=== PATIENT | male | born 1965 | race Caucasian/White ===

== ENCOUNTER 2019-03-15 09:24 | Inpatient (IN) ==
[2019-03-15] MEDS ORDERED: ACETAMINOPHEN 325 MG TABLET PO ONE (09:38)
[2019-03-15] MEDS ORDERED: 0.9 % SODIUM CHLORIDE 1,000 ML IV ONE (09:38)
--- NOTE | 2019-03-15 10:15 | XRay Report ---
CLINICAL INFORMATION: fever COMPARISON: 01/23/2019 FINDINGS: Moderate cardiomegaly is unchanged. Implantable cardioverter defibrillator in stable satisfactory position. Right central line also remains in stable satisfactory position. Mediastinum unremarkable. Pulmonary vessels have returned to normal in caliber since previous x-ray. There may be a small vague infiltrate developing in the right base IMPRESSION: Possible developing right basilar infiltrate Moderate stable cardiomegaly - no evidence of CHF Interpreted and Authenticated by: Rodrick Valverde 03/15/19
[2019-03-15 10:23] LABS: Basophils # (Auto) 0 K/mcL (0.0-0.3); Basophils % (Auto) 0 % (0.0-2.0); Eosinophils # (Auto) 0.1 K/mcL (0.0-0.7); Eosinophils % (Auto) 1.7 % (0.0-7.0); Granulocytes % (Auto) 92.8 % (38.0-78.0); Hematocrit 41.5 % (41.0-55.0); Lymphocytes # (Auto) 0.2 K/mcL (1.5-4.8); Lymphocytes % (Auto) 3.2 % (15.5-49.0); Mean Corpuscular HGB Conc 31.3 g/dL (31.0-36.0); Mean Platelet Volume 8.3 fL (7.4-10.4); Monocytes # (Auto) 0.2 K/mcL (0.1-0.9); Monocytes % (Auto) 2.3 % (1.0-12.0); Platelet Count 177 K/mcL (140-440); RBC 3.95 M/mcL (4.50-5.90); Red Cell Distribution Width 19.5 % (11.5-14.5); WBC 7.1 K/mcL (4.5-11.0)
[2019-03-15 10:55] LABS: ALT/SGPT 15 U/l (0-40); AST/SGOT 62 U/l (0-37); Albumin 4.2 gm/dL (3.2-5.2); Albumin/Globulin Ratio 1.2 (1.0-2.3); Alkaline Phosphatase 285 U/L (39-117); Bilirubin,Total 0.9 mg/dL (0.0-1.0); Blood Urea Nitrogen 24 mg/dl (6-20); Calcium 8.9 mg/dl (8.6-10.4); Carbon Dioxide 25 mmol/L (22-30); Chloride 94 mmol/L (96-108); Globulin 3.5 gm/dL (2.2-3.7); Glomerular Filtration Rate 11; Glucose 71 mg/dL (70-105)
--- NOTE | 2019-03-15 10:56 | Emergency Department Note ---
Weakness HPI - General Chief complaint: Weakness Stated complaint: Fever, weakness, low sats Time Seen by Provider: 03/15/19 10:42 Source: EMS Mode of arrival: EMS - History of Present Illness HPI Narrative: This 53-year-old male reports that he lives at home alone in an apartment. He gets dialysis and has chronic renal failure etc. He had a recent sepsis work-up and treatment and was flown to [place]. Today he comes because of feeling very cold and weak and chills. He had onset of the chills last week he says. He has had a little bit of a dry cough. EMS found him 76% on room air. He does not get home oxygen. He denies sweatiness. REVIEW OF SYSTEMS: Denies sweats Denies chest pain Denies cough or shortness of breath. Does not have oxygen at home Denies nausea, vomiting, diarrhea, constipation. Is an uric. Has chronic back pain he attributes to scoliosis No dizziness Some chronic anxiety and chronic depression. - Related Data Home Medications Medication Instructions Recorded Confirmed Calcium Acetate [Phoslo] 2,001 mg PO TIDCC 01/23/19 03/15/19 Folic Acid/Vit Bcomp,C/Cu/Znox 1 each PO DAILY 01/23/19 03/15/19 [Folbee Plus Cz Tablet] Simvastatin [Zocor] 20 mg PO HS 01/23/19 03/15/19 Amiodarone HCl [Cordarone] 200 mg PO QDAY 03/15/19 03/15/19 Aspirin [Padmini Chewable Aspirin] 81 mg PO QDAY 03/15/19 03/15/19 Calcium Acetate [Phoslo] 1,334 mg PO BIDP PRN 03/15/19 03/15/19 Carvedilol [Coreg] 3.125 mg PO BID 03/15/19 03/15/19 Cholecalciferol (Vitamin D3) 5,000 unit PO Q48H 03/15/19 03/15/19 [Vitamin D3] Hydrocodone/APAP 7.5/325Mg [[place] 1 - 2 tab PO Q8HP PRN 03/15/19 03/15/19 7.5-325Mg] Lisinopril [Zestril] 1 tab PO DAILY 03/15/19 03/15/19 Midodrine [Midodrine HCl] 5 mg PO QIDP PRN 03/15/19 03/15/19 Allergies Allergy/AdvReac Type Severity Reaction Status Date / Time morphine Allergy Mild Hives Verified 03/15/19 09:24 midazolam AdvReac Mild Hallucinati Verified 03/15/19 09:24 ng bisoprolol AdvReac Unknown Verified 03/15/19 09:24 Past Medical History - Past Medical History [facility] Narrative: Medical History (Last Updated 03/15/19 @ 10:59 by Deshaun Kelsey DO) Chronic renal failure, stage 5 (Chronic) Hypertension, essential (Chronic) Myocardial infarction (Chronic) Cardiac defibrillator in place (Chronic) Congestive heart failure (CHF) (Chronic) Coronary artery disease (Chronic) Anemia (Chronic) Hard of hearing (Chronic) Acute decompensated heart failure (Resolved) Fluid overload (Resolved) Medical history: Reports: CAD (coronary artery disease), CHF, hypertension, myocardial infarction, renal disease, other (Dialysis patient. Anemia. Defibrillator. Cardiac arrest. Diverticulitis). Denies: chronic anticoagulation, DVT, DM, pneumonia, pulmonary embolus Surgical history ED: Reports: non-contributory, other (AV fistula) - Social History smoking status: Former smoker Alcohol use: Reports: None Drug use: Reports: none. Denies: marijuana Physical Exam Limitations: physical limitation General appearance: in no apparent distress, malaise, obtunded, sleepy Head: atraumatic, normocephalic Eye: Present: EOMI ENT: Present: mucous membranes dry (Very dry lips and tongue.) Neck: Present: trachea midline. Absent: lymphadenopathy, thyromegaly Chest: Present: symmetric chest wall rise Respiratory: Present: normal lung sounds bilaterally. Absent: respiratory distress, wheezes, stridor, accessory muscle use, prolonged expiratory phase Cardiovascular: Present: regular rate, normal rhythm. Absent: systolic murmur, diastolic murmur Abdominal: Present: soft. Absent: distention, tenderness, guarding, rebound, rigidity, organomegaly, mass Extremities: Absent: pedal edema, pretibial edema, calf tenderness Neurological: Present: other (Sleepy but arousable and mostly appropriate interactions but incomplete and poor eye contact) Psychiatric: Present: flat affect, serious, poor eye contact. Absent: depr essed, agitated, anxious Skin: Present: warm, dry. Absent: rash Course Vital Signs Temperature 103.1 F H 03/15/19 09:24 Pulse Rate 95 H 03/15/19 09:24 Respiratory Rate 22 03/15/19 09:24 Blood Pressure 98/58 03/15/19 09:24 Pulse Oximetry (%) 92 03/15/19 09:24 Temperature 96.8 F L 03/15/19 21:01 Pulse Rate 81 03/15/19 20:15 Respiratory Rate 17 03/15/19 21:22 Blood Pressure 159/107 03/15/19 21:21 Pulse Oximetry (%) 97 03/15/19 21:22 Weakness - MDM Narrative Medical decision making narrative: 10:46 AM -patient with significant fever, cough, hypoxia, chills. Has a history of a heart murmur. Has had recent catheter change and AV fistula placement. We will do sepsis work-up and evaluation. EKG demonstrates LVH with repolarization abnormalities. 10:50 AM - x-ray showing a right basilar early infiltrate. Patient is continuing to require 4 and then 5 L of oxygen. 10:56 AM - labs with hemoglobin 13.0, hematocrit 41.5. Lactic acid 1.8. Creatinine 5.2 where previous ones were 6.7, 5.5 and 9.2. 11:11 AM - spoke with Dr. Butts, dog sitter who is willing to consult on patie nt and approves of going ahead with ceftriaxone 1 g and Vanco 1 g. 11:59 AM - spoke with Dr. Raza, who kindly accepts this patient for critical care treatment. Because of sepsis and history of recent antibiotics for sepsis, will add Zosyn 3.375. Also a blood gas ordered. - Lab Data Lab results reviewed: Yes I reviewed the patient's lab results. Result diagrams: 03/15/19 09:42 03/15/19 09:42 Lab Results 03/15/19 03/15/19 03/15/19 Range/Units 09:42 09:42 09:42 WBC 7.1 (4.5-11.0) K/mcL RBC 3.95 L (4.50-5.90) M/mcL Hgb 13.0 L (13.5-16.5) g/dL Hct 41.5 (41.0-55.0) % MCV 105.0 H (80.0-100.0) fL MCH 32.8 (26.0-34.0) pg MCHC 31.3 (31.0-36.0) g/dL RDW 19.5 H (11.5-14.5) % Plt Count 177 (140-440) K/mcL MPV 8.3 (7.4-10.4) fL Gran % 92.8 H (38.0-78.0) % Lymph % (Auto) 3.2 L (15.5-49.0) % [place] % (Auto) 2.3 (1.0-12.0) % Eos % (Auto) 1.7 (0.0-7.0) % Baso % (Auto) 0 (0.0-2.0) % Gran # 6.6 (1.8-8.0) K/mcL Lymph # (Auto) 0.2 L (1.5-4.8) K/mcL [place]rie # (Auto) 0.2 (0.1-0.9) K/mcL Eos # (Auto) 0.1 (0.0-0.7) K/mcL Baso # (Auto) 0 (0.0-0.3) K/mcL VBG Lactic Acid 1.8 (0.5-2.0) mmol/L Sodium 133 (133-145) mmol/L Potassium 5.1 (3.3-5.1) mmol/L Chloride 94 L (96-108) mmol/L Carbon Dioxide 25 (22-30) mmol/L Anion Gap 14.0 (8-16) BUN 24 H (6-20) mg/dl Creatinine 5.4 H* (0.7-1.2) mg/dl GFR Calculation 11 Glucose 71 (70-105) mg/dL Calcium 8.9 (8.6-10.4) mg/dl Total Bilirubin 0.9 (0.0-1.0) mg/dL AST 62 H (0-37) U/l ALT 15 (0-40) U/l Alkaline Phosphatase 285 H (39-117) U/L Troponin T (0-0.03) ng/ml Total Protein 7.7 (5.9-8.4) gm/dL Albumin 4.2 (3.2-5.2) gm/dL Globulin 3.5 (2.2-3.7) gm/dL Albumin/Globulin Ratio 1.2 (1.0-2.3) 03/15/19 Range/Units 09:42 WBC (4.5-11.0) K/mcL RBC (4.50-5.90) M/mcL Hgb (13.5-16.5) g/dL Hct (41.0-55.0) % MCV (80.0-100.0) fL MCH (26.0-34.0) pg MCHC (31.0-36.0) g/dL RDW (11.5-14.5) % Plt Count (140-440) K/mcL MPV (7.4-10.4) fL Gran % (38.0-78.0) % Lymph % (Auto) (15.5-49.0) % Guthrie % (Auto) (1.0-12.0) % Eos % (Auto) (0.0-7.0) % Baso % (Auto) (0.0-2.0) % Gran # (1.8-8.0) K/mcL Lymph # (Auto) (1.5-4.8) K/mcL [place] # (Auto) (0.1-0.9) K/mcL Eos # (Auto) (0.0-0.7) K/mcL Baso # (Auto) (0.0-0.3) K/mcL VBG Lactic Acid (0.5-2.0) mmol/L Sodium (133-145) mmol/L Potassium (3.3-5.1) mmol/L Chloride (96-108) mmol/L Carbon Dioxide (22-30) mmol/L Anion Gap (8-16) BUN (6-20) mg/dl Creatinine (0.7-1.2) mg/dl GFR Calculation Glucose (70-105) mg/dL Calcium (8.6-10.4) mg/dl Total Bilirubin (0.0-1.0) mg/dL AST (0-37) U/l ALT (0-40) U/l Alkaline Phosphatase (39-117) U/L Troponin T 0.12 H* (0-0.03) ng/ml Total Protein (5.9-8.4) gm/dL Albumin (3.2-5.2) gm/dL Globulin (2.2-3.7) gm/dL Albumin/Globulin Ratio (1.0-2.3) - Radiology Data Radiology results reviewed: Yes I reviewed the patient's radiology results. Disposition Pt seen by QUALITY ASSURANCE INSPECTOR/PA only: No Clinical Impression: Chronic renal failure, stage 5 Pneumonia Qualifiers: Pneumonia type: due to unspecified organism Laterality: right Lung location: lower lobe of lung Qualified Code(s): J18.1 - Lobar pneumonia, unspecified organism Sepsis Qualifiers: Sepsis type: sepsis due to unspecified organism Sepsis acute organ dysfunction status: with acute organ dysfunction Severe sepsis acute organ dysfunction type: unspecified Severe sepsis shock status: without septic shock Qualified Code(s): A41.9 - Sepsis, unspecified organism; R65.20 - Severe sepsis without septic shock Summary: See "MEDICAL DECISION MAKING" above. Disposition: Xfer As Inpt ([facility]) Condition: Serious
[2019-03-15] MEDS ORDERED: cefTRIAXone 1 GM VIAL IM ONE (11:12)
[2019-03-15] MEDS ORDERED: VANCOMYCIN 1,000 MG in 0.9 % SODIUM CHLORIDE 250 ML IV ONE (11:12)
[2019-03-15] MEDS ORDERED: cefTRIAXone 1 GM VIAL IV ONE (11:38)
[2019-03-15] MEDS ORDERED: 0.9 % SODIUM CHLORIDE 1,000 ML IV SCH (11:45)
[2019-03-15] MEDS ORDERED: PIPERACILLIN SODIUM/TAZOBACTAM 3.375 GM in DEXTROSE 5% IN WATER 50 ML IV ONE (11:58)
--- NOTE | 2019-03-15 12:07 | Internal Med History&Physical ---
Medical - H&P: [facility] Patient information: Note initiated : 03/15/19 at 12:03 pm Service Date, if different from initiated Date: [] Patient: Oswaldo Jose a 53 y/o M admitted on for Fever, weakness, low sats. Chief Complaint: [] Chief complaint: Fever chills and lethargy History of present illness: Mr. Jose is a 53 year old M with a history of ESRD on hemodialysis who underwent treatment for bacteremia back in December and subsequent HD catheter replacement. 2 weeks prior to presentation patient underwent left upper extremity fistula graft placement at [facility]. Patient has been in his baseline state of health undergoing hemodialysis 3 times a week. Patient has become lethargic fatigued and started experiencing shaking chills along with high-grade fever 103 this morning. He underwent his hemodialysis yesterday but has been getting progressively weak lethargic and short of breath. EMS was called and was found to be hypoxic with sats in mid 70s. Initial work-up in the ER was consistent with severe sepsis with hypoxic respiratory failure requiring 5 L oxygen and right lower lobe pneumonia. Patient was started on broad antibiotic coverage. Nephrology was consulted and hospitalist service was requested for admission. At the time of evaluation patient is lethargic fatigued and demonstrating involuntary jerking movements. He denies acute distress including headache, chest pain, diarrhea. Denies photophobia/nausea vomiting. Endorses shaking chills and fever. Denies changes in medication. Denies sick contacts. Review of systems 10 point review system was performed and is negative except for one discussed above Medical - H&P: PMH Medical history: ESRD on hemodialysis since last 1/2 years CAD with nonischemic cardiomyopathy end-stage heart failure with EF 15-20 % Moderate pulmonary hypertension Iron deficiency anemia History of V. tach status post ICD Recent admission at [facility] December 2018 with septic shock/dialysis catheter infection Hypertension Hyperlipidemia Peripheral vascular disease Surgical history: Abdominal surgery at [facility] 2010 ICD placement 2007 Colostomy and subsequent colostomy takedown 2010 PCI 2007 Dialysis fistula Knee arthroscopy 1988 Pertinent family history: COPD mother CAD/hypertension Father CAD maternal grandfather Social history: Lives in the [place] kids Smoking status: Current some day smoker ([id number]) Have you smoked in the last 12 months: Yes Drug use: none Alcohol use: none Medical - H&P: Meds Home Medications Medication Instructions Recorded Confirmed Type Calcium Acetate [Phoslo] 2,001 mg PO TIDCC 01/23/19 03/15/19 History Folic Acid/Vit Bcomp,C/Cu/Znox 1 each PO DAILY 01/23/19 03/15/19 History [Folbee Plus Cz Tablet] Simvastatin [Zocor] 20 mg PO HS 01/23/19 03/15/19 History Amiodarone HCl [Cordarone] 200 mg PO QDAY 03/15/19 03/15/19 History Aspirin [Padmini Chewable Aspirin] 81 mg PO QDAY 03/15/19 03/15/19 History Carvedilol [Coreg] 3.125 mg PO BID 03/15/19 03/15/19 History Cholecalciferol (Vitamin D3) 5,000 unit PO QDAY 03/15/19 03/15/19 History [Vitamin D3] Midodrine [Midodrine HCl] 5 mg PO QID PRN 03/15/19 03/15/19 History Allergies Allergy/AdvReac Type Severity Reaction Status Date / Time morphine Allergy Mild Hives Verified 03/15/19 09:24 midazolam AdvReac Mild Hallucinati Verified 03/15/19 09:24 ng bisoprolol AdvReac Unknown Verified 03/15/19 09:24 Medical - H&P: Exam - Constitutional Vitals: Temp Pulse Resp BP Pulse Ox 101.5 F H 97 H 27 H 91/60 89 L 03/15/19 10:27 03/15/19 11:30 03/15/19 11:30 03/15/19 11:30 03/15/19 11:30 General appearance: no acute distress Exam: Fatigue lethargic Head normocephalic Oral cavity dry cyanosed lips Eye movement symmetrical No ear nose discharge Neck no lymphadenopathy S1-S2 tachycardia, paced rhythm on telemetry, defibrillator left anterior chest, tunneled subclavian dialysis catheter right anterior chest Diminished breath sounds bases without adventitious sounds Abdomen soft nontender infraumbilical midline prior incision scar, no hernia, guarding or tenderness Skin otherwise no suspicious lesion Lower extremity no sinus clubbing no joint swelling Left upper extremity fistula with thrill Psych fatigue lethargic but responds to commands Neuro nonfocal Medical - H&P: Reslt - Labs CBC & Chem 7: 03/15/19 09:42 03/15/19 09:42 Labs: Short CBC 03/15/19 Range/Units 09:42 WBC 7.1 (4.5-11.0) K/mcL Hgb 13.0 L (13.5-16.5) g/dL Hct 41.5 (41.0-55.0) % Plt Count 177 (140-440) K/mcL BMP 03/15/19 09:42 Sodium 133 Potassium 5.1 Chloride 94 L Carbon Dioxide 25 BUN 24 H Creatinine 5.4 H* Glucose 71 Calcium 8.9 Cardiac Enzymes 03/15/19 Range/Units 09:42 Troponin T 0.12 H* (0-0.03) ng/ml Liver Function 03/15/19 Range/Units 09:42 Total Bilirubin 0.9 (0.0-1.0) mg/dL AST 62 H (0-37) U/l ALT 15 (0-40) U/l Alkaline Phosphatase 285 H (39-117) U/L Albumin 4.2 (3.2-5.2) gm/dL Medical - H&P: A/P (1) Right lower lobe pneumonia Current visit: Yes Status: Acute * Right lower lobe pneumonia-broad antibiotic coverage/blood and sputum cultures/ICU admission in light of hypotension and evidence of endorgan dysfunction. Pneumonia severity index over 100 * Hypoxic respiratory failure currently on 5 L oxygen. ABG 7.38/40 5, large AA gradient. Continue supplemental oxygen/bronchodilators * Hypotension secondary to sepsis/right lower lobe pneumonia-crystallo id/vasopressors as indicated to keep map over 65. Admit to ICU * NYHA class IV systolic heart failure with EF 15 to 20%. Currently well compensated, status post 1.5 m crystalloid. Avoid excess volume * ESRD on hemodialysis, nephrology consulted * Hyperlipidemia continue statin * Paroxysmal atrial fibrillation continue amiodarone. Currently in sinus * Prophylaxis heparin * Full code Plan * ICU admission in light of [place] score 16 signify high mortality risk. * Initiate broad antibiotic coverage, pancultures * Noninvasive ventilation if indicated * Chest x-ray/serial ABG * Vasopressors to keep map at goal * Nephrology consult for HD Critical care time spent in excess of 35 minutes in addition to's 65 minutes spent on history and physical
[2019-03-15] MEDS ORDERED: MIDODRINE 5 MG TABLET PO PRN ×2 (12:58→13:30)
[2019-03-15] MEDS ORDERED: ONDANSETRON 4 MG/2 ML VIAL IV PRN (12:58)
[2019-03-15] MEDS ORDERED: LEVOFLOXACIN 750 MG/150 ML BAG IV SCH (12:58)
[2019-03-15] MEDS ORDERED: PIPERACILLIN SODIUM/TAZOBACTAM 3.375 GM in DEXTROSE 5% IN WATER 50 ML IV SCH (12:58)
[2019-03-15] MEDS ORDERED: VANCOMYCIN PER PHARMACY IV SCH (12:58)
[2019-03-15] MEDS ORDERED: MELATONIN 3 MG TABLET PO PRN (12:58)
[2019-03-15] MEDS ORDERED: NOREPINEPHRINE BITARTRATE 16 MG in 0.9 % SODIUM CHLORIDE 234 ML IV SCH (12:58)
[2019-03-15] MEDS ORDERED: ACETAMINOPHEN 325 MG TABLET PO PRN (12:58)
[2019-03-15] MEDS ORDERED: ACETAMINOPHEN 650 MG/65 ML BOTTLE IV PRN (12:58)
[2019-03-15] MEDS ORDERED: 0.9 % SODIUM CHLORIDE 10 ML SYRINGE IV SCH (14:00)
[2019-03-15] MEDS ORDERED: 0.9 % SODIUM CHLORIDE 250 ML IV SCH (14:15)
[2019-03-15] MEDS ORDERED: LEVOFLOXACIN 750 MG/150 ML BAG IV ONE (15:00)
[2019-03-15] MEDS: IPRATROPIUM/ALBUTEROL 3 ML AMPUL.NEB NEB SCH ×2 (15:00→18:41)
[2019-03-15] MEDS ORDERED: CALCIUM ACETATE 667 MG CAPSULE PO SCH (17:30)
--- NOTE | 2019-03-15 17:31 | Nephrology Progress Note ---
Subjective Patient information: Note initiated : 03/15/19 at 5:28 pm Service Date, if different from initiated Date: [] Patient: Oswaldo Jose 53 y/o M admitted on 03/15/19 for Fever, weakness, low sats. Chief Complaint: [] He is obtunded and on levofed and 6 liters of O2. Objective - Vital Signs Vital signs: Vital Signs Temp Pulse Pulse Resp BP BP Pulse Ox 03/15/19 17:22 28 H 91 03/15/19 17:16 22 102/62 90 03/15/19 17:01 97.8 F 26 H 104/70 90 03/15/19 16:46 29 H 92/70 92 03/15/19 16:31 24 H 101/56 92 03/15/19 16:16 98.7 F 26 H 95/57 92 03/15/19 16:14 28 H 92 03/15/19 16:08 97.6 F 24 H 71/60 90 03/15/19 16:03 27 H 77/56 91 03/15/19 15:47 26 H 97/61 95 03/15/19 15:31 28 H 110/63 90 03/15/19 15:16 26 H 96/69 92 03/15/19 15:01 24 H 99/63 93 03/15/19 15:00 92 H 26 H 91 03/15/19 14:46 24 H 95/66 92 03/15/19 14:42 24 H 91 03/15/19 14:36 27 H 94/61 93 03/15/19 14:31 21 99/54 92 03/15/19 14:26 26 H 99/57 92 03/15/19 14:24 26 H 91/58 91 03/15/19 14:16 25 H 92/66 94 03/15/19 14:01 27 H 81/51 96 03/15/19 13:57 25 H 83/49 03/15/19 13:55 26 H 77/48 94 03/15/19 13:53 23 H 84/51 94 03/15/19 13:12 95 H 106/60 83 L 03/15/19 13:11 98.8 F 91/55 03/15/19 13:08 24 H 92/58 88 L 03/15/19 12:56 99.2 F H 92 H 22 106/60 89 L 03/15/19 12:45 94 H 24 H 92/58 88 L 03/15/19 12:44 95 H 24 H 88 L 03/15/19 12:30 95 H 24 H 92/56 88 L 03/15/19 12:15 95 H 25 H 81/54 89 L 03/15/19 12:00 97 H 22 92/55 91 03/15/19 11:45 97 H 25 H 92/58 91 03/15/19 11:30 97 H 27 H 91/60 89 L 03/15/19 11:23 97 H 29 H 89/57 87 L 03/15/19 11:15 29 H 89/54 03/15/19 11:00 98 H 25 H 99/56 89 L 03/15/19 10:45 100 H 28 H 108/66 90 03/15/19 10:31 30 H 100/67 89 L 03/15/19 10:27 101.5 F H 03/15/19 10:20 101.5 F H 03/15/19 10:16 101.5 F H 30 H 108/63 88 L 03/15/19 10:01 95 H 21 92/53 91 03/15/19 09:42 103.1 F H 03/15/19 09:39 98 H 98/58 90 03/15/19 09:24 103.1 F H 95 H 22 98/58 92 Intake and Output 03/15/19 03/15/19 03/15/19 05:59 13:59 21:59 Intake Total 1326 217 Balance 1326 217 Intake: IV 1326 217 Sodium Chloride 0.9% 1,000 ml @ 1046 250 mls/hr IV .Q4H BEN Rx#: [id number] Levophed 16 mg In Sodium 2 Chloride 0.9% 234 ml @ 10 MCG/ MIN 9.375 mls/hr IV Q24H BEN Rx #:[id number] Zosyn 3.375 gm In Dextrose 5% 30 in Water 50 ml @ 100 mls/hr IV ONCE ONE Rx#:[id number] Vancomycin 1,000 mg In Sodium 250 Chloride 0.9% 250 ml @ 250 mls/ hr IV ONCE ONE Rx#:[id number] Other: Weight 171 lb 3.2 oz Patient Weight 10/18/19 05:59 Weight 171 lb 3.2 oz Intake & Output: Intake & Output 03/15/19 03/15/19 03/15/19 05:59 13:59 21:59 Intake Total 1326 217 Balance 1326 217 Weight 171 lb 3.2 oz Intake: IV 1326 217 Sodium Chloride 0.9% 1,000 ml @ 1046 250 mls/hr IV .Q4H BEN Rx#: [id number] Levophed 16 mg In Sodium 2 Chloride 0.9% 234 ml @ 10 MCG/ MIN 9.375 mls/hr IV Q24H BEN Rx #:[id number] Zosyn 3.375 gm In Dextrose 5% 30 in Water 50 ml @ 100 mls/hr IV ONCE ONE Rx#:[id number] Vancomycin 1,000 mg In Sodium 250 Chloride 0.9% 250 ml @ 250 mls/ hr IV ONCE ONE Rx#:[id number] - General Appearance General appearance: moderate distress EENT: ATNC Neck: JVD Cardiology: mid-systolic murmur Integumentary: no rash Neurologic: no focal deficit - Lab 03/15/19 09:42 03/15/19 09:42 Most recent lab results Calcium 8.9 mg/dl (8.6-10.4) 03/15/19 09:42 Assessment and Plan (1) Chronic renal failure, stage 5 Status: Chronic Comment: In septic shock, hypoxic and possibly volume overloaded. Will try slow gentle fluid removal with a blood flow of 300 and uf of 1L/hour.
[2019-03-15] MEDS ORDERED: HEPARIN/D5W 500 ML IV ONE (20:39)
[2019-03-15] MEDS ORDERED: HEPARIN 5,000 UNIT/ML VIAL IV ONE (20:41)
--- NOTE | 2019-03-15 20:44 | Transfer Summary ---
Transfer Discharge Sum: Prov Patient information: Note initiated : 03/15/19 at 8:38 pm Service Date, if different from initiated Date: [] Patient: Oswaldo Jose 53 y/o M admitted on 03/15/19 for Fever, weakness, low sats. Chief Complaint: [] Date of admission: 03/15/19 12:56 Discharge Date: 03/15/19 Primary care physician: Emanuel Butts Consults: 03/15/19 11:32 Consult to Physician [CONS] Stat Comment: Consulting Provider: Jeison Okeefe Reason For Exam: Physician to Consult Transfer Discharge Sum: Diag - Discharge Diagnosis (1) Right lower lobe pneumonia Status: Acute Transfer Discharge Sum: Med - Medications Active and Home Medications: Home Medications Calcium Acetate [Phoslo] 2,001 mg PO TIDCC 01/23/19 [History Confirmed 03/15/19] Folic Acid/Vit Bcomp,C/Cu/Znox [Folbee Plus Cz Tablet] 1 each PO DAILY 01/23/19 [History Confirmed 03/15/19] Simvastatin [Zocor] 20 mg PO HS 01/23/19 [History Confirmed 03/15/19] Amiodarone HCl [Cordarone] 200 mg PO QDAY 03/15/19 [History Confirmed 03/15/19] Aspirin [Padmini Chewable Aspirin] 81 mg PO QDAY 03/15/19 [History Confirmed 03/15/19] Calcium Acetate [Phoslo] 1,334 mg PO BIDP PRN 03/15/19 [History Confirmed 03/15/19] Carvedilol [Coreg] 3.125 mg PO BID 03/15/19 [History Confirmed 03/15/19] Cholecalciferol (Vitamin D3) [Vitamin D3] 5,000 unit PO Q48H 03/15/19 [History Confirmed 03/15/19] Hydrocodone/APAP 7.5/325Mg [[place] 7.5-325Mg] 1 - 2 tab PO Q8HP PRN 03/15/19 [History Confirmed 03/15/19] Lisinopril [Zestril] 1 tab PO DAILY 03/15/19 [History Confirmed 03/15/19] Midodrine [Midodrine HCl] 5 mg PO QIDP PRN 03/15/19 [History Confirmed 10/17/19] Active Medications Acetaminophen (Tylenol) 650 mg PO Q4-6HP PRN; Protocol PRN Reason: Per Pain Protocol/Fever > 101 Albuterol/Ipratropium (Duoneb) 3 ml NEB Q4HRT [facility] Last Admin: 03/15/19 18:41 Dose: 3 ml Documented by: Amiodarone HCl (Cordarone) 200 mg PO QDAY [facility] Aspirin (Aspirin) 81 mg PO QDAY [facility] Calcium Acetate (Phoslo) 2,001 mg PO TIDCC [facility] Last Admin: 03/15/19 16:28 Dose: Not Given Documented by: Docusate Sodium (Colace) 100 mg PO BID [facility] Heparin Sodium (Porcine) (Heparin) 5,000 unit SQ Q12 BEN Acetaminophen (Ofirmev) 650 mg in 65 mls @ 130 mls/hr IV Q6HP PRN; Protocol PRN Reason: Per Pain Protocol/Fever > 101 Last Infusion: 03/15/19 14:57 Dose: Infused Documented by: Norepinephrine Bitartrate 16 (mg/ Sodium Chloride) 250 mls @ 9.375 mls/hr IV Q24H [facility]; Protocol Last Titration: 03/15/19 19:01 Dose: 10 mcg/min, 9.375 mls/hr Documented by: Piperacillin Sod/Tazobactam (Sod 2.25 gm/ Dextrose) 50 mls @ 100 mls/hr IV Q12H [facility]; Protocol Levofloxacin (Levaquin) 500 mg in 100 mls @ 100 mls/hr IV Q48H [facility] Sodium Chloride (Sodium Chloride 0.9%) 250 mls @ 20 mls/hr IV .[id number] [facility] Last Admin: 03/15/19 14:22 Dose: 20 mls/hr Documented by: Melatonin (Melatonin 3mg Tablet) 3 mg PO HSP PRN PRN Reason: Insomnia Midodrine (Midodrine Hcl) 5 mg PO QIDP PRN PRN Reason: . Multivit/Ca Carb/B Cmplx/FA/Prenat (Diatx) 1 tab PO DAILY [facility] Ondansetron HCl (Zofran) 4 mg IV Q4-6HP PRN; Protocol PRN Reason: Nausea And Vomiting Senna/Docusate Sodium (Senna Plus Tablet) 1 tab PO HS [facility] Simvastatin (Zocor) 20 mg PO HS [facility] Sodium Chloride (Saline Flush) 10 ml IV Q8 [facility] Last Admin: 03/15/19 14:16 Dose: 10 ml Documented by: Vancomycin HCl (Vancomycin Per Pharmacy) 1 order IV UD [facility]; Protocol Vitamin D (Vitamin D3) 5,000 unit PO DAILY [facility] Transfer Discharge Sum: Hosp Hospital course: Transfer diagnosis * Acute respiratory failure with hypoxia, ABG shows element of hypercapnia/ VQ mismatch 7.3/57 on 12 L oxygen. Large AA gradient. Start mechanical ventilation. Start emperic PE treatment on Heparin drip * Mechanical ventilation continue per protocol. Continue Versed/fentanyl * Septic shock-on broad antibiotic coverage including vancomycin and Zosyn. Likely source right lower lobe pneumonia * Right lower lobe pneumonia on broad antibiotic coverage * ESRD on HD unable to tolerate hemodialysis * Paroxysmal A. fib patient has been on amiodarone. Will currently in sinus * NYHA class IV systolic heart failure EF 15 to 20%. Status post defibrillator. Brief hospital course Mr. Jose is a 53 year old M with a history of ESRD on hemodialysis who underwent treatment for bacteremia back in December and subsequent HD catheter replacement. 2 weeks prior to presentation patient underwent left upper extremity fistula graft placement at [facility]. Patient has been in his baseline state of health undergoing hemodialysis 3 times a week. Patient has become lethargic fatigued and started experiencing shaking chills along with high-grade fever 103 this morning. He underwent his hemodialysis yesterday but has been getting progressively weak lethargic and short of breath. EMS was called and was found to be hypoxic with sats in mid 70s. Initial work-up in the ER was consistent with severe sepsis with hypoxic respiratory failure requiring 5 L oxygen and right lower lobe pneumonia. Patient was started on broad antibiotic coverage. Nephrology was consulted and hospitalist service was requested for admission. At the time of evaluation patient is lethargic fatigued and demonstrating involuntary jerking movements. He denies acute distress including headache, chest pain, diarrhea. Denies photophobia/nausea vomiting. Endorses shaking chills and fever. Denies changes in medication. Denies sick contacts. Patient continued to deteriorate with worsening hypoxic respiratory failure requiring 15 L oxygen and septic shock. ABG seven-point / on 12 L oxygen. Large VQ mismatch/AA gradient. Currently on 10 units of Levophed. Anesthesia to intubate and initiate mechanical ventilation. In light of worsening hypoxic respiratory failure/septic shock patient will be transferred to tertiary center. Case discussed with Dr. Echeverria at [facility]. Patient accepted for further management. Patient be transferred via air ambulance. Patient started on heparin drip for presumed PE in light of hypotension/worsening hypoxia and a large VQ mismatch without evidence of multilobar pneumonia or extensive pulmonary parenchymal involvement. Additional critical care time spent in excess of 75 minutes on management of septic shock/hypoxic respiratory failure/mechanical ventilation and transfer coordination via air ambulance - Time Spent with Patient Total time spent providing and/or coordinating transfer services: Greater than 30 minutes Transfer Discharge Sum: Exam - Constitutional Vitals: Vital Signs Temp Pulse Pulse Resp BP BP Pulse Ox 03/15/19 20:00 96.6 F L 82 98/56 03/15/19 19:45 97.4 F 82 122/60 03/15/19 19:30 80 97/60 03/15/19 19:15 97.3 F 81 99/59 03/15/19 18:43 83 20 03/15/19 18:01 98.7 F 28 H 100/58 91 03/15/19 17:46 26 H 103/50 93 03/15/19 17:31 28 H 94/62 92 03/15/19 17:22 28 H 91 03/15/19 17:16 22 102/62 90 03/15/19 17:01 97.8 F 26 H 104/70 90 03/15/19 16:46 29 H 92/70 92 03/15/19 16:31 24 H 101/56 92 03/15/19 16:16 98.7 F 26 H 95/57 92 03/15/19 16:14 28 H 92 03/15/19 16:08 97.6 F 24 H 71/60 90 03/15/19 16:03 27 H 77/56 91 03/15/19 15:47 26 H 97/61 95 03/15/19 15:31 28 H 110/63 90 03/15/19 15:16 26 H 96/69 92 03/15/19 15:01 24 H 99/63 93 03/15/19 15:00 92 H 26 H 91 03/15/19 14:46 24 H 95/66 92 03/15/19 14:42 24 H 91 03/15/19 14:36 27 H 94/61 93 03/15/19 14:31 21 99/54 92 03/15/19 14:26 26 H 99/57 92 03/15/19 14:24 26 H 91/58 91 03/15/19 14:16 25 H 92/66 94 03/15/19 14:01 27 H 81/51 96 03/15/19 13:57 25 H 83/49 03/15/19 13:55 26 H 77/48 94 03/15/19 13:53 23 H 84/51 94 03/15/19 13:12 95 H 106/60 83 L 03/15/19 13:11 98.8 F 91/55 03/15/19 13:08 24 H 92/58 88 L 03/15/19 12:56 99.2 F H 92 H 22 106/60 89 L 03/15/19 12:45 94 H 24 H 92/58 88 L 03/15/19 12:44 95 H 24 H 88 L 03/15/19 12:30 95 H 24 H 92/56 88 L 03/15/19 12:15 95 H 25 H 81/54 89 L 03/15/19 12:00 97 H 22 92/55 91 03/15/19 11:45 97 H 25 H 92/58 91 03/15/19 11:30 97 H 27 H 91/60 89 L 03/15/19 11:23 97 H 29 H 89/57 87 L 03/15/19 11:15 29 H 89/54 03/15/19 11:00 98 H 25 H 99/56 89 L 03/15/19 10:45 100 H 28 H 108/66 90 03/15/19 10:31 30 H 100/67 89 L 03/15/19 10:27 101.5 F H 03/15/19 10:20 101.5 F H 03/15/19 10:16 101.5 F H 30 H 108/63 88 L 03/15/19 10:01 95 H 21 92/53 91 03/15/19 09:42 103.1 F H 03/15/19 09:39 98 H 98/58 90 03/15/19 09:24 103.1 F H 95 H 22 98/58 92 Intake and Output 03/15/19 03/15/19 03/15/19 05:59 13:59 21:59 Intake Total 1326 247 Balance 1326 247 Intake: IV 1326 247 Sodium Chloride 0.9% 1,000 ml @ 1046 250 mls/hr IV .Q4H [facility] Rx#: [id number] Levophed 16 mg In Sodium 32 Chloride 0.9% 234 ml @ 10 MCG/ MIN 9.375 mls/hr IV Q24H [facility] Rx #:[id number] Zosyn 3.375 gm In Dextrose 5% 30 in Water 50 ml @ 100 mls/hr IV ONCE ONE Rx#:[id number] Vancomycin 1,000 mg In Sodium 250 Chloride 0.9% 250 ml @ 250 mls/ hr IV ONCE ONE Rx#:[id number] Other: Weight 171 lb 3.2 oz Patient Weight 03/16/19 05:59 Weight 171 lb 3.2 oz Transfer Discharge Sum: Data Procedures and tests throughout hospitalization: Transfer Discharge Sum: A/P - Problem Maintenance (1) Right lower lobe pneumonia Status: Acute Quality Measure Queries - VTE Deep Vein Thrombosis/Pulmonary Embolism Present on Admission: No
[2019-03-15] MEDS ORDERED: HEPARIN/D5W 25,000 UNIT in PREMIX 1 BAG IV SCH (20:45)
[2019-03-15] MEDS ORDERED: HEPARIN 5,000 UNIT/ML VIAL ONE (20:46)
--- NOTE | 2019-03-15 20:51 | Procedure Note ---
Procedures - Intubation Time out performed: Yes Date of Procedure: 03/15/19 Sedative: Versed Paralytic: Succinylcholine ETT: ETCO2, BBS Mg given: 23 Assist device used: glide ET tube size: 8 Tube secured location: lips Tube placement confirmation: visualized tube passing through cords, equal breath sounds bilaterally, no breath sounds over epigastrium, confirmation by capnometry Patient tolerated procedure: well, no complications Intubation complications: none (pt with allery to versed, hallucinations. Risks of not giving and having to give more propofol was greater than the hallucinations so it was decided to give it. pt with EF 15% and hypotensive. 3 mg given with 100 mg ketamine, 90 mg propofol, and 110 of sux. 60 of tiny given for transport)
[2019-03-15] MEDS ORDERED: SIMVASTATIN 20 MG TABLET PO SCH (21:00)
[2019-03-15] MEDS ORDERED: PIPERACILLIN SODIUM/TAZOBACTAM 2.25 GM in DEXTROSE 5% IN WATER 50 ML IV SCH (21:00)
[2019-03-15] MEDS ORDERED: SENNOSIDES/DOCUSATE SODIUM 1 TAB TABLET PO SCH (21:00)
[2019-03-15] MEDS ORDERED: DOCUSATE SODIUM 100 MG CAPSULE PO SCH (21:00)
[2019-03-15] MEDS ORDERED: HEPARIN 5,000 UNIT/ML VIAL SQ SCH (21:00)
[2019-03-16] MEDS ORDERED: FOLIC ACID/VITAMIN B COMP W-C 1 TAB TABLET PO SCH (09:00)
[2019-03-16] MEDS ORDERED: VITAMIN D3 5,000 UNIT CAPSULE PO SCH (09:00)
[2019-03-16] MEDS ORDERED: ASPIRIN 81 MG TAB.CHEW PO SCH (09:00)
[2019-03-16] MEDS ORDERED: AMIODARONE HCL 200 MG TABLET PO SCH (09:00)
[2019-03-17] MEDS ORDERED: LEVOFLOXACIN 500 MG/100 ML BAG IV SCH (09:00)
== END 2019-03-15 21:25 | disposition short-term general hospital (02) | DRG 871 ==
LOC: ED 09:24 → ICU 12:56
PROVIDERS: ADMIT Internal Medicine; ATTEND Internal Medicine

== ENCOUNTER 2020-10-31 18:27 | Inpatient (IN) ==
--- NOTE | 2020-10-31 19:06 | Emergency Department Note ---
Altered Mental Status HPI General Chief Complaint: Altered Mental Status Stated Complaint: altered mental status, possibly septic, fever Time Seen by Provider: 10/31/20 18:56 Source: patient and EMS Mode of arrival: EMS Limitations: altered mental status History of Present Illness HPI Narrative: Narrative: The patient is sent over from dialysis for concerns of sepsis. They think it might be due to a an infected tooth. Patient was not making sense while at dialysis. His sister says he still appears confused. There has been no cough. Patient is an uric. He denies headache or chest pain. He denies abdominal pain. He is on heparin and likes to chew on ice during dialysis. He did start to bleed in his mouth. He has some mild pain in the right upper jaw. He denies other associated problems Related Data Home Medications Medication Instructions Recorded Confirmed calcium acetate(phosphat bind) 2,001 mg PO TIDCC 01/23/19 03/15/19 simvastatin 20 mg PO HS 01/23/19 03/15/19 vit B jlte-A-NV-copper-zinc 1 each PO DAILY 01/23/19 03/15/19 amiodarone 200 mg PO QDAY 03/15/19 03/15/19 aspirin 81 mg PO QDAY 03/15/19 03/15/19 calcium acetate(phosphat bind) 1,334 mg PO BIDP PRN 03/15/19 03/15/19 carvedilol 3.125 mg PO BID 03/15/19 03/15/19 cholecalciferol (vitamin D3) 5,000 unit PO Q48H 03/15/19 03/15/19 hydrocodone-acetaminophen 1 - 2 tab PO Q8HP PRN 03/15/19 03/15/19 lisinopril 1 tab PO DAILY 03/15/19 03/15/19 midodrine 5 mg PO QIDP PRN 03/15/19 03/15/19 Allergies Allergy/AdvReac Type Severity Reaction Status Date / Time morphine Allergy Mild Hives Verified 03/15/19 09:24 midazolam AdvReac Mild Hallucinati Verified 03/15/19 09:24 ng bisoprolol AdvReac Unknown Verified 03/15/19 09:24 Review of Systems ROS ROS Narrative: Narrative: All systems ED: reviewed and negative except as stated. PFSH Narrative Patient History Narrative: Narrative: Medical/Surgical/Family History All Active Problems (Updated 10/31/20 @ 22:49 by Jared Trevino MD) Right lower lobe pneumonia (Acute) Pneumonia (Acute) Sepsis (Acute) Facial cellulitis (Acute) Sepsis (Acute) Encephalopathy (Acute) Chronic renal failure, stage 5 (Chronic) Hypertension, essential (Chronic) Myocardial infarction (Chronic) Cardiac defibrillator in place (Chronic) Congestive heart failure (CHF) (Chronic) Coronary artery disease (Chronic) Anemia (Chronic) Hard of hearing (Chronic) Medical History (Updated 10/31/20 @ 22:49 by Jared Trevino MD) Acute decompensated heart failure Anemia Cardiac defibrillator in place Chronic renal failure, stage 5 In septic shock, hypoxic and possibly volume overloaded. Will try slow gentle fluid removal with a blood flow of 300 and uf of 1L/hour. Congestive heart failure (CHF) Coronary artery disease Fluid overload Had UF yesterday and he is doing a lot better. Cath infection. Got antibiotics yesterday. Can go home if ok with Dr. Okeefe. Hard of hearing Hypertension, essential Myocardial infarction Social History Smoking Status: Smokeless tobacco Exam Narrative Narrative: Narrative: General Limitations: altered mental status General appearance: Present alert and in no apparent distress Head Head: Present atraumatic and normal inspection Eye Eye: Present normal appearance ENT ENT: Present mucous membranes moist, dental caries and other (Possible small area of fluctuance in the right upper jaw) Neck Neck: Present normal inspection, full ROM and trachea midline; Absent meningismus Chest Chest: Present normal inspection and symmetric chest wall rise Respiratory Respiratory: Present normal lung sounds bilaterally; Absent respiratory distress Cardiovascular Cardiovascular: Present regular rate and normal rhythm Adbominal Abdominal: Present soft; Absent distention, tenderness, guarding and rebound Extremities Extremities: Present normal inspection and full ROM Back Back: Present full ROM; Absent CVA tenderness (R) and CVA tenderness (L) Neurological Neurological: Present alert and CN II-XII intact; Absent oriented X3 and motor sensory deficit Expanded Neurological Patient oriented to: Present person and place; Absent time Speech: Present fluid speech CRANIAL NERVES: EOM function (II, III, IV, ): Normal, facial palsy (VII): Normal and tongue deviation (XII): Normal Motor strength - LUE: 5/5 Motor strength - RUE: 5/5 Motor strength - LLE: 5/5 Motor strength - RLE: 5/5 Psychiatric Psychiatric: Present normal affect and normal mood Skin Skin: Present warm (WNL) and dry Course Reevaluation(s) Reevaluation #1: I spoke to the hospitalist, Dr. Raza. He agreed to admit this patient Time: 22:48 Vital Signs Vital signs: Vital Signs Temperature 103.4 F H 10/31/20 18:39 Pulse Rate 87 10/31/20 18:39 Respiratory Rate 22 10/31/20 18:39 Blood Pressure 92/61 10/31/20 18:39 Pulse Oximetry (%) 87 L 10/31/20 18:39 Temperature 103.4 F H 10/31/20 18:39 Pulse Rate 98 H 10/31/20 21:46 Respiratory Rate 23 H 10/31/20 21:46 Blood Pressure 84/53 10/31/20 21:46 Pulse Oximetry (%) 90 10/31/20 21:46 MDM MDM Narrative Medical decision making narrative: Narrative: The patient presents altered. I suspect infection as the cause. It could be from the tooth. He is an uric. Pulmonary source is unlikely but possible. Work-up will be geared towards this differential. We will give a half a liter of fluid given the fact that he is on dialysis. Lab Data Result diagrams: 10/31/20 19:56 10/31/20 19:32 Labs: Lab Results 10/31/20 10/31/20 10/31/20 Range/Units 19:32 19:32 19:46 WBC (4.5-11.0) K/mcL RBC (4.50-5.90) M/mcL Hgb (13.5-16.5) g/dL Hct (41.0-55.0) % MCV (80.0-100.0) fL MCH (26.0-34.0) pg MCHC (31.0-36.0) g/dL RDW (11.5-14.5) % Plt Count (140-440) K/mcL MPV (7.4-10.4) fL Neut % (Auto) (38.0-78.0) % Lymph % (Auto) (15.0-49.0) % [place] % (Auto) (1.0-12.0) % Eos % (Auto) (0.0-7.0) % Baso % (Auto) (0.0-2.0) % Lymph # (Auto) (1.50-4.80) K/mcL [place] # (Auto) (0.10-0.90) K/mcL Eos # (Auto) (0.00-0.70) K/mcL Baso # (Auto) (0.00-0.20) K/mcL Absolute Neutrophils (1.80-8.00) K/mcL VBG Lactic Acid 1.8 (0.5-2.0) mmol/L Sodium 135 (133-145) mmol/L Potassium 5.5 H (3.3-5.1) mmol/L Chloride 93 L (96-108) mmol/L Carbon Dioxide 27 (22-30) mmol/L Anion Gap 15.0 (8.0-16.0) BUN 24 H (6-20) mg/dL Creatinine 5.4 H* (0.7-1.2) mg/dL GFR Calculation 11 Glucose 54 L (70-105) mg/dL Calcium 8.7 (8.6-10.4) mg/dL Total Bilirubin 2.1 H (0.1-1.0) mg/dL AST 51 H (<40) U/L ALT 42 H (<40) U/L Alkaline Phosphatase 377 H (39-117) U/L Total Protein 7.0 (5.9-8.4) gm/dL Albumin 3.9 (3.2-5.2) gm/dL Globulin 3.1 (2.2-3.7) gm/dL Albumin/Globulin Ratio 1.3 (1.0-2.3) Ethyl Alcohol < 0.010 (<0.010) gm/dL 10/31/20 Range/Units 19:56 WBC 6.4 (4.5-11.0) K/mcL RBC 5.37 (4.50-5.90) M/mcL Hgb 18.4 H (13.5-16.5) g/dL Hct 56.3 H (41.0-55.0) % MCV 104.8 H (80.0-100.0) fL MCH 34.3 H (26.0-34.0) pg MCHC 32.7 (31.0-36.0) g/dL RDW 18.8 H (11.5-14.5) % Plt Count 99 L (140-440) K/mcL MPV (7.4-10.4) fL Neut % (Auto) 80.0 H (38.0-78.0) % Lymph % (Auto) 6.2 L (15.0-49.0) % [place] % (Auto) 10.8 (1.0-12.0) % Eos % (Auto) 1.9 (0.0-7.0) % Baso % (Auto) 1.1 (0.0-2.0) % Lymph # (Auto) 0.40 L (1.50-4.80) K/mcL [place] # (Auto) 0.69 (0.10-0.90) K/mcL Eos # (Auto) 0.12 (0.00-0.70) K/mcL Baso # (Auto) 0.07 (0.00-0.20) K/mcL Absolute Neutrophils 5.13 (1.80-8.00) K/mcL VBG Lactic Acid (0.5-2.0) mmol/L Sodium (133-145) mmol/L Potassium (3.3-5.1) mmol/L Chloride (96-108) mmol/L Carbon Dioxide (22-30) mmol/L Anion Gap (8.0-16.0) BUN (6-20) mg/dL Creatinine (0.7-1.2) mg/dL GFR Calculation Glucose (70-105) mg/dL Calcium (8.6-10.4) mg/dL Total Bilirubin (0.1-1.0) mg/dL AST (<40) U/L ALT (<40) U/L Alkaline Phosphatase (39-117) U/L Total Protein (5.9-8.4) gm/dL Albumin (3.2-5.2) gm/dL Globulin (2.2-3.7) gm/dL Albumin/Globulin Ratio (1.0-2.3) Ethyl Alcohol (<0.010) gm/dL EKG Data EKG #1: EKG attestation: Yes I reviewed and interpreted this EKG. 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) Condition: Fair Follow up with: Emanuel Butts MD [Primary Care Provider] - Prescriptions: No Action simvastatin 20 MG tablet 20 mg PO HS RF: 0 calcium acetate(phosphat bind) 667 MG capsule 2,001 mg PO TIDCC RF: 0 vit B dkmk-S-UU-copper-zinc 1 EACH tablet 1 each PO DAILY RF: 0 amiodarone 200 MG tablet 200 mg PO QDAY RF: 0 aspirin 81 MG tablet,chewable 81 mg PO QDAY RF: 0 midodrine 5 MG tablet 5 mg PO QIDP PRN (Reason: Blood Pressure - Low) RF: 0 carvedilol 3.125 MG tablet 3.125 mg PO BID RF: 0 cholecalciferol (vitamin D3) 5,000 UNIT tablet,disintegrating 5,000 unit PO Q48H RF: 0 calcium acetate(phosphat bind) 667 MG capsule 1,334 mg PO BIDP PRN (Reason: With snacks) RF: 0 hydrocodone-acetaminophen 1 TAB tablet 1 - 2 tab PO Q8HP PRN (Reason: Pain) RF: 0 lisinopril 40 MG tablet 1 tab PO DAILY RF: 0
[2020-10-31] MEDS ORDERED: 0.9 % SODIUM CHLORIDE 500 ML IV SCH (19:15)
--- NOTE | 2020-10-31 19:37 | XRay Report ---
INDICATION: sepsis TECHNIQUE: AP portable semierect chest x-ray COMPARISON: Previous chest x-rays dated 04/02/2019, 03/28/2019 FINDINGS:There is a power pack with a single lead. Lead appears to be an ICD lead but is not within the heart. Lungs:Lungs are negative. No focal pulmonary parenchymal infiltrate or mass Heart, vascular:There is cardiomegaly, unchanged. No evidence for pulmonary edema. Mediastinum, marta:No mediastinal widening. No hilar mass Pleura:No detectable pleural fluid. Skeletal:Negative. IMPRESSION: 1. Cardiomegaly. No pulmonary edema. 2. No focal parenchymal infiltrate Interpreted and Authenticated by: Rodrick Bishop 10/31/20
--- NOTE | 2020-10-31 20:26 | Cat Scan Report ---
INDICATION: dental abscess? TECHNIQUE: Axial images through the facial bones. Sagittal and coronal reformatted images. Contrast material was not administered due to history of renal failure COMPARISON: None. FINDINGS: Nasal bones:Negative. No fracture Orbits:No ocular abnormality. No intraorbital abnormality Zygomatic arches:Negative Maxilla:Marked periapical lucency surrounding the root of the left upper incisor. There is anterior cortical loss. There are multiple absent teeth. No evidence for osteomyelitis Mandible:No mandibular fracture. The patient is missing multiple mandibular teeth. No significant mandibular abscess. Skull base:Negative temporal bones. Mastoid sinuses are negative. Middle ears are clear. No basilar skull fracture Paranasal sinuses: There are rounded densities in both maxillary sinuses consistent with retention cysts or polyps. No air-fluid levels. Ethmoid, frontal, sphenoid sinuses are negative Facial soft tissues: Abnormal soft tissue density within the soft tissues overlying the anterior maxilla. This extends to the subcutaneous fat in the right cheek. There is no well-defined fluid collection. No mature abscess. No soft tissue gas bubbles. Appearance is consistent with cellulitis. Cervical spine: Visualized portions of the cervical spine demonstrate severe degenerative disc disease at C2-C3, C3-C4, C4-C5, C5-C6, C6-C7. There is C2-C3 anterolisthesis. IMPRESSION: 1. . Focal lucency and bone destruction surrounding the root of the left maxillary incisor. 2. Abnormal soft tissues anterior to the maxilla and extending to the right cheek. Findings are consistent with cellulitis. A well-defined mature abscess is not identified. The exam was performed using radiation dose optimization techniques including, but not limited to, automated exposure control, adjustment of the mA and/or kV according to patient size and use of iterative reconstruction technique. Interpreted and Authenticated by: Rodrick Bishop 10/31/20
[2020-10-31] MEDS ORDERED: cefTRIAXone 1 GM VIAL IV ONE (20:33)
[2020-10-31 21:23] LABS: Basophils # (Auto) 0.07 K/mcL (0.00-0.20); Basophils % (Auto) 1.1 % (0.0-2.0); Eosinophils # (Auto) 0.12 K/mcL (0.00-0.70); Eosinophils % (Auto) 1.9 % (0.0-7.0); Hematocrit 56.3 % (41.0-55.0); Hemoglobin 18.4 g/dL (13.5-16.5); Lymphocytes % (Auto) 6.2 % (15.0-49.0); Mean Cell Volume 104.8 fL (80.0-100.0); Mean Corpuscular HGB Conc 32.7 g/dL (31.0-36.0); Monocytes # (Auto) 0.69 K/mcL (0.10-0.90); Monocytes % (Auto) 10.8 % (1.0-12.0); Platelet Count 99 K/mcL (140-440); RBC 5.37 M/mcL (4.50-5.90); Red Cell Distribution Width 18.8 % (11.5-14.5); WBC 6.4 K/mcL (4.5-11.0)
[2020-10-31 21:40] LABS: Alcohol, Blood < 10.0 mg/dL; Alcohol,Blood < 0.010 gm/dL (<0.010)
[2020-10-31 21:41] LABS: ALT/SGPT 42 U/L (<40); AST/SGOT 51 U/L (<40); Albumin 3.9 gm/dL (3.2-5.2); Albumin/Globulin Ratio 1.3 (1.0-2.3); Alkaline Phosphatase 377 U/L (39-117); Bilirubin,Total 2.1 mg/dL (0.1-1.0); Blood Urea Nitrogen 24 mg/dL (6-20); Calcium 8.7 mg/dL (8.6-10.4); Carbon Dioxide 27 mmol/L (22-30); Chloride 93 mmol/L (96-108); Globulin 3.1 gm/dL (2.2-3.7); Glomerular Filtration Rate 11; Glucose 54 mg/dL (70-105)
--- NOTE | 2020-10-31 22:55 | Internal Med History&Physical ---
HPI History of Present Illness Patient information: Note initiated : 10/31/20 at 10:55 pm Service Date, if different from initiated Date: [] Patient: Oswaldo Jose a 55 y/o M admitted on for altered mental status, possibly septic, fever. Chief Complaint: [] History of present illness: Mr. Jose is a 55 year old M with history of ESRD on hemodialysis/A. fib/chronic hypertension/HLD who presents to the ER from dialysis with hypotension/high-grade fever up to 104 and right-sided facial redness and swelling. Patient was at dialysis per he was noted to be altered and confused with blood pressure dropping down. He was started on ceftazidime with dialysis clinic and was emergently transferred to the ER. Initial work-up was consistent with severe sepsis with tachycardia cause, tachypnea/hypotension and likely source right-sided jaw cellulitis on CT face. Patient was started on antibiotics after cultures were drawn. Hospitalist service was consulted for admission. At the time of my evaluation patient is lethargic and confused. Most of the history was obtained from patient's sister who is accompanying him. Patient was able to answer some of the review of systems and denies headache, photophobia, diarrhea, dysuria endorses to weakness, shaking chills. Review of systems 10 point review system was performed and is negative except for ones discussed above PFSH PFSH All Active Problems (Updated 10/31/20 @ 22:49 by Jared Trevino MD) Right lower lobe pneumonia (Acute) Pneumonia (Acute) Sepsis (Acute) Facial cellulitis (Acute) Sepsis (Acute) Encephalopathy (Acute) Chronic renal failure, stage 5 (Chronic) Hypertension, essential (Chronic) Myocardial infarction (Chronic) Cardiac defibrillator in place (Chronic) Congestive heart failure (CHF) (Chronic) Coronary artery disease (Chronic) Anemia (Chronic) Hard of hearing (Chronic) Medical History (Updated 10/31/20 @ 22:49 by Jared Trevino MD) Acute decompensated heart failure Anemia Cardiac defibrillator in place Chronic renal failure, stage 5 In septic shock, hypoxic and possibly volume overloaded. Will try slow gentle fluid removal with a blood flow of 300 and uf of 1L/hour. Congestive heart failure (CHF) Coronary artery disease Fluid overload Had UF yesterday and he is doing a lot better. Cath infection. Got antibiotics yesterday. Can go home if ok with Dr. Okeefe. Hard of hearing Hypertension, essential Myocardial infarction MEDS/ALLERGIES Home Medications and Allergies Home Medications Medication Instructions Recorded Confirmed Type calcium acetate(phosphat bind) 1,334 mg PO TIDCC 01/23/19 11/01/20 History simvastatin 20 mg PO HS 01/23/19 11/01/20 History amiodarone 200 mg PO HS 03/15/19 11/01/20 History aspirin 81 mg PO QDAY 03/15/19 11/01/20 History calcium acetate(phosphat bind) 667 mg PO BIDP PRN 03/15/19 11/01/20 History carvedilol 3.125 mg PO HS 03/15/19 11/01/20 History cholecalciferol (vitamin D3) 5,000 unit PO 2-3XW 03/15/19 11/01/20 History midodrine 10 mg PO QIDP PRN 03/15/19 11/01/20 History B complex-vitamin C-folic acid 1 tab PO HS 11/01/20 11/01/20 History [[place] Plus] clopidogrel 75 mg PO DAILY 11/01/20 11/01/20 History hydralazine 10 mg PO BID 11/01/20 11/01/20 History levothyroxine 25 mcg PO DAILY 11/01/20 11/01/20 History Allergies Allergy/AdvReac Type Severity Reaction Status Date / Time morphine Allergy Mild Hives Verified 03/15/19 09:24 bisoprolol Allergy Unknown Unknown Verified 11/01/20 07:46 midazolam AdvReac Mild Hallucinati Verified 03/15/19 09:24 ng EXAM Constitutional Vitals: Temp Pulse Resp BP Pulse Ox 103.4 F H 98 H 23 H 84/53 90 10/31/20 18:39 10/31/20 21:46 10/31/20 21:46 10/31/20 21:46 10/31/20 21:46 Confused, disoriented and weak Head normocephalic Oral cavity moist No ear or nose discharge Eye no subconjunctival pallor, movement symmetrical, right-sided facial erythema S1-S2 occasionally irregular Nonlabored breathing pacemaker defibrillator nondistended nontender abdomen Left upper extremity fistula, lower extremity no cyanosis clubbing or joint swe lling Skin no suspicious lesion Psych anxious but cooperative Neuro normal GCS 8 DATA Data Completed and Pending Labs: Labs from last 24 hours 10/31/20 10/31/20 10/31/20 19:56 19:56 19:46 WBC 6.4 RBC 5.37 Hgb 18.4 H Hct 56.3 H MCV 104.8 H MCH 34.3 H MCHC 32.7 RDW 18.8 H Plt Count 99 L MPV Neut % (Auto) 80.0 H Lymph % (Auto) 6.2 L [place] % (Auto) 10.8 Eos % (Auto) 1.9 Baso % (Auto) 1.1 Lymph # (Auto) 0.40 L [place] # (Auto) 0.69 Eos # (Auto) 0.12 Baso # (Auto) 0.07 Absolute Neutrophils 5.13 VBG Lactic Acid 1.8 Sodium Potassium Chloride Carbon Dioxide Anion Gap BUN Creatinine GFR Calculation Glucose Calcium Total Bilirubin AST ALT Alkaline Phosphatase Ammonia Pending Total Protein Albumin Globulin Albumin/Globulin Ratio Ethyl Alcohol 10/31/20 10/31/20 19:32 19:32 WBC RBC Hgb Hct MCV MCH MCHC RDW Plt Count MPV Neut % (Auto) Lymph % (Auto) [place] % (Auto) Eos % (Auto) Baso % (Auto) Lymph # (Auto) [place] # (Auto) Eos # (Auto) Baso # (Auto) Absolute Neutrophils VBG Lactic Acid Sodium 135 Potassium 5.5 H Chloride 93 L Carbon Dioxide 27 Anion Gap 15.0 BUN 24 H Creatinine 5.4 H* GFR Calculation 11 Glucose 54 L Calcium 8.7 Total Bilirubin 2.1 H AST 51 H ALT 42 H Alkaline Phosphatase 377 H Ammonia Total Protein 7.0 Albumin 3.9 Globulin 3.1 Albumin/Globulin Ratio 1.3 Ethyl Alcohol < 0.010 A/P Narrative A/P Narrative: * Septic/hypovolemic shock- crystalloid/vasopressors/antibiotic coverage. Likely source facial cellulitis * Rt sided Facial cellulitis-start Zosyn, await cultures * ESRD on HD managed by Dr. Butts nephrology * History of nonischemic cardiomyopathy with EF 20%. On Coreg/ERIC inhibitor. Pacemaker defibrillator * History of atrial fibrillation on amiodarone * HLD on statin * Chronic hypotension restart midodrine * Hypothyroidism continue thyroxine * History of CAD continue Plavix/Coreg/aspirin/statin * Full code * Prophylaxis Heparin Plan * Inpatient ICU admission * Start vasopressors/antibiotics/sepsis management guidelines * Pre-existing medical condition management home meds * PT OT/nutrition support * HD per nephrology Time Spent With Patient Time: Critical time spent on management of septic shock in excess of 35 minutes in addition to time spent on history and physical
[2020-11-01] MEDS ORDERED: POLYETHYLENE GLYCOL 3350 17 GM PACKET PO PRN (00:16)
[2020-11-01] MEDS ORDERED: BISACODYL 10 MG SUPP.RECT PR PRN (00:16)
[2020-11-01] MEDS ORDERED: MAGNESIUM SULFATE 2 GM/50 ML BAG IV PRN (00:16)
[2020-11-01] MEDS ORDERED: ONDANSETRON 4 MG/2 ML VIAL IV PRN (00:16)
[2020-11-01] MEDS ORDERED: ACETAMINOPHEN 650 MG/65 ML BAG IV PRN (00:16)
[2020-11-01] MEDS ORDERED: ONDANSETRON 4 MG ODT TABLET SL PRN (00:16)
[2020-11-01] MEDS ORDERED: NOREPINEPHRINE BITARTRATE 8 MG in 0.9 % SODIUM CHLORIDE 242 ML IV SCH (00:16)
[2020-11-01] MEDS ORDERED: PIPERACILLIN SODIUM/TAZOBACTAM 3.375 GM in DEXTROSE 5% IN WATER 50 ML IV SCH (00:16)
[2020-11-01] MEDS ORDERED: NOREPINEPHRINE BITARTRATE 4 MG/4 ML VIAL IV ONE (00:23)
[2020-11-01] MEDS: NOREPINEPHRINE BITARTRATE 16 MG in 0.9 % SODIUM CHLORIDE 234 ML IV SCH ×2 (00:39→23:31)
[2020-11-01] MEDS: 0.9 % SODIUM CHLORIDE 250 ML IV SCH ×6 (00:41→23:32)
[2020-11-01] MEDS ORDERED: ACETAMINOPHEN 1,000 MG/100 ML BAG IV ONE (00:50)
[2020-11-01] MEDS: 0.9 % SODIUM CHLORIDE 1,000 ML IV SCH ×2 (01:02→19:57)
[2020-11-01] MEDS: PIPERACILLIN SODIUM/TAZOBACTAM 2.25 GM in DEXTROSE 5% IN WATER 50 ML IV SCH ×5 (01:45→21:54)
[2020-11-01] MEDS: 0.9 % SODIUM CHLORIDE 10 ML SYRINGE IV SCH ×3 (05:57→21:57)
[2020-11-01 06:58] LABS: Basophils # (Auto) 0.11 K/mcL (0.00-0.20); Basophils % (Auto) 1.3 % (0.0-2.0); Eosinophils # (Auto) 0.03 K/mcL (0.00-0.70); Eosinophils % (Auto) 0.3 % (0.0-7.0); Hematocrit 56.8 % (41.0-55.0); Hemoglobin 17.5 g/dL (13.5-16.5); Lymphocytes # (Auto) 1.51 K/mcL (1.50-4.80); Lymphocytes % (Auto) 17.2 % (15.0-49.0); Mean Cell Volume 113.4 fL (80.0-100.0); Mean Corpuscular HGB Conc 30.8 g/dL (31.0-36.0); Mean Platelet Volume 11.9 fL (7.4-10.4); Monocytes # (Auto) 1.66 K/mcL (0.10-0.90); Monocytes % (Auto) 18.9 % (1.0-12.0); Neutrophils % (Auto) 62.3 % (38.0-78.0); Platelet Count 99 K/mcL (140-440); RBC 5.01 M/mcL (4.50-5.90); WBC 8.8 K/mcL (4.5-11.0)
[2020-11-01 07:55] LABS: ALT/SGPT 42 U/L (<40); AST/SGOT 60 U/L (<40); Albumin 3.4 gm/dL (3.2-5.2); Albumin/Globulin Ratio 1.1 (1.0-2.3); Alkaline Phosphatase 386 U/L (39-117); Bilirubin,Direct 0.7 mg/dL (<0.3); Blood Urea Nitrogen 34 mg/dL (6-20); Calcium 8.4 mg/dL (8.6-10.4); Carbon Dioxide 22 mmol/L (22-30); Chloride 91 mmol/L (96-108); Globulin 3.2 gm/dL (2.2-3.7); Glomerular Filtration Rate 8; Glucose 101 mg/dL (70-105); Lactate Dehydrogenase 282 U/L (135-225); Phosphorous 4.5 mg/dL (2.5-4.5); Triglycerides 72 mg/dL (<150); Uric Acid 5.3 mg/dL (2.5-8.0)
--- NOTE | 2020-11-01 09:56 | Internal Med Progress Note ---
SUBJECTIVE Subjective Patient information: Note initiated : 11/01/20 at 9:53 am Service Date, if different from initiated Date: [] Patient: Oswaldo Jose a 55 y/o M admitted on 11/01/20 for altered mental status, possibly septic, fever. Chief Complaint: [] Interval history: History of present illness: Mr. Jose is a 55 year old M with history of ESRD on hemodialysis/A. fib/chronic hypertension/HLD who presents to the ER from dialysis with hypotension/high-grade fever up to 104 and right- sided facial redness and swelling. Patient was at dialysis per he was noted to be altered and confused with blood pressure dropping down. He was started on ceftazidime with dialysis clinic and was emergently transferred to the ER. Initial work-up was consistent with severe sepsis with tachycardia cause, tachypnea/hypotension and likely source right-sided jaw cellulitis on CT face. Patient was started on antibiotics after cultures were drawn. Hospitalist service was consulted for admission. At the time of my evaluation patient is lethargic and confused. Most of the history was obtained from patient's sister who is accompanying him. Patient was able to answer some of the review of systems and denies headache, photophobia, diarrhea, dysuria endorses to weakness, shaking chills. 6/5 patient doing better. Weaning Levophed. No overnight events. Much more lucid alert. Potassium 5.8. Hemodialysis today. Nephrology consulted. Continue antibiotics. Right-sided facial swelling much improved. at bedside. No expressed concerns per nursing staff. T-max 102 Constitutional Vitals: Vital Signs Temp Pulse Resp BP Pulse Ox 98.3 F 76 27 H 93/74 97 11/01/20 08:00 11/01/20 08:00 11/01/20 09:30 11/01/20 09:30 11/01/20 09:00 Period Temp Pulse Resp BP Sys/Joy Pulse Ox Last 24 Hr 98.3 F-103.4 F 74-102 16-35 65-153/32-118 87-99 Intake and Output 10/31/20 11/01/20 11/01/20 21:59 05:59 13:59 Intake Total 500 387 3 Balance 500 387 3 Weight 76.657 kg 74.48 kg alert oriented Nonlabored breathing No telemetry events Right-sided facial swelling improved Left upper extremity fistula no swelling redness or pain Intake & Output: Intake & Output 10/31/20 11/01/20 11/01/20 21:59 05:59 13:59 Intake Total 500 387 3 Balance 500 387 3 Weight 76.657 kg 74.48 kg Intake: IV 500 127 3 Sodium Chloride 0.9% 500 ml @ 500 Wide Open IV .Q0M BEN Rx#: [id number] Levophed 16 mg In Sodium 12 3 Chloride 0.9% 234 ml @ 10 MCG/ MIN 9.375 mls/hr IV Q24H [facility] Rx #:[id number] Zosyn 2.25 gm In Dextrose 5% in 50 Water 50 ml @ 100 mls/hr IV Q6H BEN Rx#:[id number] Oral 260 Other: Urine Appearance Clear Urine Color Pale OBJ DATA Labs CBC & Chem 7: 11/01/20 05:30 11/01/20 05:30 Labs: Abnormal Lab Results 11/01/20 11/01/20 11/01/20 07:35 05:30 05:30 Hgb 17.5 H Hct 56.8 H MCV 113.4 H MCH 34.9 H MCHC 30.8 L RDW 20.0 H Plt Count 99 L MPV 11.9 H Neut % (Auto) Lymph % (Auto) [place] % (Auto) 18.9 H Lymph # (Auto) [place] # (Auto) 1.66 H Sodium 130 L Potassium 5.8 H Chloride 91 L Anion Gap 17.0 H BUN 34 H Creatinine 7.3 H* Glucose Calcium 8.4 L Magnesium 2.6 H Total Bilirubin Direct Bilirubin 0.7 H GGT 352 H AST 60 H ALT 42 H Alkaline Phosphatase 386 H Lactate Dehydrogenase 282 H C-Reactive Protein 11.30 H Procalcitonin 5.06 H 10/31/20 10/31/20 19:56 19:32 Hgb 18.4 H Hct 56.3 H MCV 104.8 H MCH 34.3 H MCHC RDW 18.8 H Plt Count 99 L MPV Neut % (Auto) 80.0 H Lymph % (Auto) 6.2 L [place] % (Auto) Lymph # (Auto) 0.40 L [place] # (Auto) Sodium Potassium 5.5 H Chloride 93 L Anion Gap BUN 24 H Creatinine 5.4 H* Glucose 54 L Calcium Magnesium Total Bilirubin 2.1 H Direct Bilirubin GGT AST 51 H ALT 42 H Alkaline Phosphatase 377 H Lactate Dehydrogenase C-Reactive Protein Procalcitonin Meds: Medications Acetaminophen (Acetaminophen 325 Mg Tablet) 650 mg PO Q4-6HP PRN; Protocol PRN Reason: Per Pain Protocol/Fever > 101 Bisacodyl (Bisacodyl 10 Mg Supp.Rect) 10 mg NV Q2-3DAYS PRN PRN Reason: Constipation Docusate Sodium (Docusate Sodium 100 Mg Capsule) 100 mg PO BID [facility] Heparin Sodium (Porcine) (Heparin 5,000 Unit/Ml Vial) 5,000 unit SQ Q12 [facility] Magnesium Sulfate (Magnesium Sulfate) 2 gm in 50 mls @ 50 mls/hr IV UD PRN PRN Reason: MG = or < 1.7 Acetaminophen (Ofirmev) 650 mg in 65 mls @ 130 mls/hr IV Q6HP PRN; Protocol PRN Reason: Per Pain Protocol/Fever > 101 Last Infusion: 11/01/20 02:18 Dose: Infused Documented by: Sodium Chloride (Sodium Chloride 0.9%) 1,000 mls @ 50 mls/hr IV .Q20H [facility] Stop: 11/03/20 12:15 Last Admin: 11/01/20 01:02 Dose: 50 mls/hr Documented by: Sodium Chloride (Sodium Chloride 0.9%) 250 mls @ 20 mls/hr IV .[id number] [facility] Last Admin: 11/01/20 01:02 Dose: Not Given Documented by: Norepinephrine Bitartrate 16 (mg/ Sodium Chloride) 250 mls @ 9.375 mls/hr IV Q24H [facility]; Protocol Last Titration: 11/01/20 07:50 Dose: 0 mcg/min, 0 mls/hr Documented by: Sodium Chloride (Sodium Chloride 0.9%) 250 mls @ 20 mls/hr IV .[id number] [facility] Last Admin: 11/01/20 00:41 Dose: Not Given Documented by: Piperacillin Sod/Tazobactam (Sod 2.25 gm/ Dextrose) 50 mls @ 100 mls/hr IV Q8H [facility]; Protocol Last Admin: 11/01/20 08:29 Dose: 100 mls/hr Documented by: Melatonin (Melatonin 3 Mg Tablet) 3 mg PO HSP PRN PRN Reason: Insomnia Ondansetron HCl (Ondansetron 4 Mg Odt Tablet) 4 mg SL Q4-6HP PRN; Protocol PRN Reason: Nausea And Vomiting Ondansetron HCl (Ondansetron 4 Mg/2 Ml Vial) 4 mg IV Q4-6HP PRN; Protocol PRN Reason: Nausea And Vomiting Polyethylene Glycol (Polyethylene Glycol 3350 17 Gm Packet) 17 gm PO DAILYP PRN PRN Reason: Constipation Senna/Docusate Sodium (Sennosides/Docusate Sodium 1 Tab Tablet) 1 tab PO HS BEN Sodium Chloride (0.9 % Sodium Chloride 10 Ml Syringe) 10 ml IV Q8 [facility]EN Last Admin: 11/01/20 05:57 Dose: 10 ml Documented by: A/P Narrative A/P Narrative: * Septic/hypovolemic shock-clinically improving. DC crystalloids, wean vasopressor ischemia MAP at goal /antibiotic coverage. Likely source facial cellulitis. Cultures negative so far * Rt sided Facial cellulitis-clinical improvement noted on Zosyn, await cultures * ESRD on HD managed by Dr. Butts nephrology * Hyperkalemia hemodialysis today management nephrology * History of nonischemic cardiomyopathy with EF 20%. On Coreg/ERIC inhibitor. Pacemaker defibrillator * History of atrial fibrillation on amiodarone * HLD on statin * Chronic hypotension restart midodrine once off pressors and able to tolerate orally * Hypothyroidism continue thyroxine * History of CAD continue Plavix/Coreg/aspirin/statin * Full code * Prophylaxis Heparin Plan * HD per nephrology * Wean vasopressors * Continue antibiotics/sepsis management guidelines * Pre-existing medical condition management home meds * PT OT/nutrition support * HD per nephrology Time Spent With Patient Time: Total time spent is greater than 50% in coordination of care (as documented) at patient's floor/unit and/or counseling patient:
[2020-11-01] MEDS: CALCIUM ACETATE 667 MG CAPSULE PO SCH ×2 (13:17→18:30)
[2020-11-01] MEDS: ACETAMINOPHEN 325 MG TABLET PO PRN (13:21)
[2020-11-01] MEDS: DOCUSATE SODIUM 100 MG CAPSULE PO SCH ×2 (13:28→19:57)
[2020-11-01] MEDS ORDERED: SODIUM POLYSTYRENE SULFONATE 15 GM/60 ML SUSPENSION PO ONE (13:31)
[2020-11-01] MEDS: HEPARIN 5,000 UNIT/ML VIAL SQ SCH ×2 (14:09→21:58)
[2020-11-01] MEDS: SENNOSIDES/DOCUSATE SODIUM 1 TAB TABLET PO SCH (19:57)
[2020-11-02] MEDS: PIPERACILLIN SODIUM/TAZOBACTAM 2.25 GM in DEXTROSE 5% IN WATER 50 ML IV SCH ×3 (05:30→21:44)
[2020-11-02] MEDS: 0.9 % SODIUM CHLORIDE 10 ML SYRINGE IV SCH ×3 (05:31→21:46)
[2020-11-02] MEDS: ACETAMINOPHEN 325 MG TABLET PO PRN ×3 (06:19→21:44)
[2020-11-02 08:23] LABS: Basophils # (Auto) 0.06 K/mcL (0.00-0.20); Basophils % (Auto) 0.9 % (0.0-2.0); Eosinophils # (Auto) 0.37 K/mcL (0.00-0.70); Eosinophils % (Auto) 5.8 % (0.0-7.0); Hematocrit 53.5 % (41.0-55.0); Hemoglobin 17.3 g/dL (13.5-16.5); Lymphocytes # (Auto) 0.45 K/mcL (1.50-4.80); Mean Cell Volume 107.4 fL (80.0-100.0); Mean Corpuscular HGB Conc 32.3 g/dL (31.0-36.0); Mean Platelet Volume 10.9 fL (7.4-10.4); Monocytes # (Auto) 0.95 K/mcL (0.10-0.90); Monocytes % (Auto) 14.8 % (1.0-12.0); Neutrophils % (Auto) 71.5 % (38.0-78.0); Platelet Count 86 K/mcL (140-440); RBC 4.98 M/mcL (4.50-5.90); Red Cell Distribution Width 18.6 % (11.5-14.5); WBC 6.4 K/mcL (4.5-11.0)
[2020-11-02 08:25] LABS: ALT/SGPT 29 U/L (<40); AST/SGOT 69 U/L (<40); Albumin 3.3 gm/dL (3.2-5.2); Albumin/Globulin Ratio 0.9 (1.0-2.3); Alkaline Phosphatase 330 U/L (39-117); Bilirubin,Direct 0.6 mg/dL (<0.3); Blood Urea Nitrogen 58 mg/dL (6-20); Calcium 8.5 mg/dL (8.6-10.4); Carbon Dioxide 24 mmol/L (22-30); Chloride 89 mmol/L (96-108); Globulin 3.6 gm/dL (2.2-3.7); Glomerular Filtration Rate 7; Glucose 74 mg/dL (70-105); Lactate Dehydrogenase 447 U/L (135-225); Phosphorous 6.2 mg/dL (2.5-4.5); Triglycerides 67 mg/dL (<150)
[2020-11-02] MEDS: CALCIUM ACETATE 667 MG CAPSULE PO SCH ×3 (08:25→18:00)
--- NOTE | 2020-11-02 10:23 | Internal Med Progress Note ---
SUBJECTIVE Subjective Patient information: Note initiated : 11/02/20 at 10:14 am Service Date, if different from initiated Date: [] Patient: Oswaldo Jose a 55 y/o M admitted on 11/01/20 for altered mental status, possibly septic, fever. Chief Complaint: [] Interval history: History of present illness: Mr. Jose is a 55 year old M with history of ESRD on hemodialysis/A. fib/chronic hypertension/HLD who presents to the ER from dialysis with hypotension/high-grade fever up to 104 and right- sided facial redness and swelling. Patient was at dialysis per he was noted to be altered and confused with blood pressure dropping down. He was started on ceftazidime with dialysis clinic and was emergently transferred to the ER. Initial work-up was consistent with severe sepsis with tachycardia cause, tachypnea/hypotension and likely source right-sided jaw cellulitis on CT face. Patient was started on antibiotics after cultures were drawn. Hospitalist service was consulted for admission. At the time of my evaluation patient is lethargic and confused. Most of the history was obtained from patient's sister who is accompanying him. Patient was able to answer some of the review of systems and denies headache, photophobia, diarrhea, dysuria endorses to weakness, shaking chills. 6/5 patient doing better. Weaning Levophed. No overnight events. Much more lucid alert. Potassium 5.8. Hemodialysis today. Nephrology consulted. Continue antibiotics. Right-sided facial swelling much improved. at bedside. No expressed concerns per nursing staff. T-max 102 6/6- Doing well, No overnight events, K 6.4 , HD today, Improved rt side jaw swelling. Off pressors. Minimal jaw discomfort. Constitutional Vitals: Vital Signs Temp Pulse Resp BP Pulse Ox 97.6 F 71 18 117/76 95 11/02/20 08:00 11/02/20 09:50 11/02/20 09:50 11/02/20 09:50 11/02/20 09:50 Period Temp Pulse Resp BP Sys/Joy Pulse Ox Last 24 Hr 97.2 F-98.7 F 25-88 15-22 91-198/48-120 80-100 Intake and Output 11/01/20 11/02/20 11/02/20 21:59 05:59 13:59 Intake Total 950 785 290 Output Total 375 Balance 575 785 290 Weight 77.111 kg alert oriented Ongoing HD No tele events Intake & Output: Intake & Output 11/01/20 11/02/20 11/02/20 21:59 05:59 13:59 Intake Total 950 785 290 Output Total 375 Balance 575 785 290 Weight 77.111 kg Intake: IV 50 485 50 Sodium Chloride 0.9% 1,000 ml @ 435 50 mls/hr IV .Q20H [facility] Rx#: [id number] Levophed 16 mg In Sodium 0 Chloride 0.9% 234 ml @ 10 MCG/ MIN 9.375 mls/hr IV Q24H [facility] Rx #:[id number] Zosyn 2.25 gm In Dextrose 5% in 50 50 50 Water 50 ml @ 100 mls/hr IV Q8H [facility] Rx#:[id number] Oral 900 300 240 Output: Stool 375 Other: Meal Dinner Breakfast Percent of Meal Consumed 100% 100% Feeding Ability Independent Stool Size Copious Stool Color Brown Stool Consistency Liquid # Bowel Movements 1 OBJ DATA Labs CBC & Chem 7: 11/02/20 05:14 11/02/20 05:14 Labs: Abnormal Lab Results 11/02/20 11/02/20 11/01/20 05:14 05:14 07:35 Hgb 17.3 H Hct MCV 107.4 H MCH 34.7 H MCHC RDW 18.6 H Plt Count 86 L MPV 10.9 H Neut % (Auto) Lymph % (Auto) 7.0 L [place] % (Auto) 14.8 H Lymph # (Auto) 0.45 L [place] # (Auto) 0.95 H Sodium 130 L Potassium 6.4 H* Chloride 89 L Anion Gap 17.0 H BUN 58 H Creatinine 8.1 H* Glucose Calcium 8.5 L Phosphorus 6.2 H* Magnesium 2.6 H Total Bilirubin Direct Bilirubin 0.6 H GGT 307 H AST 69 H ALT Alkaline Phosphatase 330 H Lactate Dehydrogenase 447 H C-Reactive Protein Albumin/Globulin Ratio 0.9 L Procalcitonin 5.06 H 11/01/20 11/01/20 10/31/20 05:30 05:30 19:56 Hgb 17.5 H 18.4 H Hct 56.8 H 56.3 H MCV 113.4 H 104.8 H MCH 34.9 H 34.3 H MCHC 30.8 L RDW 20.0 H 18.8 H Plt Count 99 L 99 L MPV 11.9 H Neut % (Auto) 80.0 H Lymph % (Auto) 6.2 L [place] % (Auto) 18.9 H Lymph # (Auto) 0.40 L [place] # (Auto) 1.66 H Sodium 130 L Potassium 5.8 H Chloride 91 L Anion Gap 17.0 H BUN 34 H Creatinine 7.3 H* Glucose Calcium 8.4 L Phosphorus Magnesium 2.6 H Total Bilirubin Direct Bilirubin 0.7 H GGT 352 H AST 60 H ALT 42 H Alkaline Phosphatase 386 H Lactate Dehydrogenase 282 H C-Reactive Protein 11.30 H Albumin/Globulin Ratio Procalcitonin 10/31/20 19:32 Hgb Hct MCV MCH MCHC RDW Plt Count MPV Neut % (Auto) Lymph % (Auto) [place] % (Auto) Lymph # (Auto) [place] # (Auto) Sodium Potassium 5.5 H Chloride 93 L Anion Gap BUN 24 H Creatinine 5.4 H* Glucose 54 L Calcium Phosphorus Magnesium Total Bilirubin 2.1 H Direct Bilirubin GGT AST 51 H ALT 42 H Alkaline Phosphatase 377 H Lactate Dehydrogenase C-Reactive Protein Albumin/Globulin Ratio Procalcitonin Meds: Medications Acetaminophen (Acetaminophen 325 Mg Tablet) 650 mg PO Q4-6HP PRN; Protocol PRN Reason: Per Pain Protocol/Fever > 101 Last Admin: 11/02/20 06:19 Dose: 650 mg Documented by: Bisacodyl (Bisacodyl 10 Mg Supp.Rect) 10 mg ND Q2-3DAYS PRN PRN Reason: Constipation Calcium Acetate (Calcium Acetate 667 Mg Capsule) 1,334 mg PO TIDCC [facility] Last Admin: 11/02/20 08:25 Dose: 1,334 mg Documented by: Docusate Sodium (Docusate Sodium 100 Mg Capsule) 100 mg PO BID [facility] Last Admin: 11/01/20 19:57 Dose: Not Given Documented by: Heparin Sodium (Porcine) (Heparin 5,000 Unit/Ml Vial) 5,000 unit SQ Q12 [facility] Last Admin: 11/01/20 21:58 Dose: 5,000 unit Documented by: Magnesium Sulfate (Magnesium Sulfate) 2 gm in 50 mls @ 50 mls/hr IV UD PRN PRN Reason: MG = or < 1.7 Acetaminophen (Ofirmev) 650 mg in 65 mls @ 130 mls/hr IV Q6HP PRN; Protocol PRN Reason: Per Pain Protocol/Fever > 101 Last Infusion: 11/01/20 02:18 Dose: Infused Documented by: Sodium Chloride (Sodium Chloride 0.9%) 1,000 mls @ 50 mls/hr IV .Q20H [facility] Stop: 11/03/20 12:15 Last Infusion: 11/01/20 22:11 Dose: Infused Documented by: Sodium Chloride (Sodium Chloride 0.9%) 250 mls @ 20 mls/hr IV .[id number] [facility] Last Admin: 11/01/20 23:32 Dose: Not Given Documented by: Norepinephrine Bitartrate 16 (mg/ Sodium Chloride) 250 mls @ 9.375 mls/hr IV Q24H [facility]; Protocol Last Admin: 11/01/20 23:31 Dose: Not Given Documented by: Sodium Chloride (Sodium Chloride 0.9%) 250 mls @ 20 mls/hr IV .[id number] [facility] Last Admin: 11/01/20 23:32 Dose: Not Given Documented by: Piperacillin Sod/Tazobactam (Sod 2.25 gm/ Dextrose) 50 mls @ 100 mls/hr IV Q8H [facility]; Protocol Last Infusion: 11/02/20 06:29 Dose: Infused Documented by: Melatonin (Melatonin 3 Mg Tablet) 3 mg PO HSP PRN PRN Reason: Insomnia Ondansetron HCl (Ondansetron 4 Mg Odt Tablet) 4 mg SL Q4-6HP PRN; Protocol PRN Reason: Nausea And Vomiting Ondansetron HCl (Ondansetron 4 Mg/2 Ml Vial) 4 mg IV Q4-6HP PRN; Protocol PRN Reason: Nausea And Vomiting Polyethylene Glycol (Polyethylene Glycol 3350 17 Gm Packet) 17 gm PO DAILYP PRN PRN Reason: Constipation Senna/Docusate Sodium (Sennosides/Docusate Sodium 1 Tab Tablet) 1 tab PO HS [facility] Last Admin: 11/01/20 19:57 Dose: Not Given Documented by: Sodium Chloride (0.9 % Sodium Chloride 10 Ml Syringe) 10 ml IV Q8 [facility] Last Admin: 11/02/20 05:31 Dose: 10 ml Documented by: A/P Narrative A/P Narrative: * Septic/hypovolemic shock-clinically resolved. off pressors. Likely source facial cellulitis. Cultures negative so far * Rt sided Facial cellulitis-clinical improvement noted on Zosyn * ESRD on HD managed by Dr. Butts nephrology * Hyperkalemia management nephrology * History of nonischemic cardiomyopathy with EF 20%. On Coreg/ERIC inhibitor. Pacemaker defibrillator * History of atrial fibrillation on amiodarone * HLD on statin * Chronic hypotension restart midodrine once off pressors and able to tolerate orally * Hypothyroidism continue thyroxine * History of CAD continue Plavix/Coreg/aspirin/statin * Full code * Prophylaxis Heparin Plan * HD per nephrology * Continue antibiotics * Pre-existing medical condition management home meds * PT OT/nutrition support * DC planning Time Spent With Patient Time: Total time spent is greater than 50% in coordination of care (as documented) at patient's floor/unit and/or counseling patient:
[2020-11-02] MEDS: DOCUSATE SODIUM 100 MG CAPSULE PO SCH ×2 (10:47→21:45)
[2020-11-02] MEDS: HEPARIN 5,000 UNIT/ML VIAL SQ SCH ×2 (10:48→21:44)
[2020-11-02] MEDS ORDERED: NOREPINEPHRINE BITARTRATE 16 MG in 0.9 % SODIUM CHLORIDE 234 ML IV PRN (14:00)
[2020-11-02] MEDS: 0.9 % SODIUM CHLORIDE 250 ML IV SCH ×2 (14:13)
[2020-11-02] MEDS: MELATONIN 3 MG TABLET PO PRN (21:44)
[2020-11-02] MEDS: SENNOSIDES/DOCUSATE SODIUM 1 TAB TABLET PO SCH (21:45)
[2020-11-03] MEDS: 0.9 % SODIUM CHLORIDE 250 ML IV SCH ×2 (01:56)
[2020-11-03] MEDS: ACETAMINOPHEN 325 MG TABLET PO PRN ×3 (03:26→21:30)
[2020-11-03] MEDS: 0.9 % SODIUM CHLORIDE 10 ML SYRINGE IV SCH ×3 (05:58→21:43)
[2020-11-03] MEDS: PIPERACILLIN SODIUM/TAZOBACTAM 2.25 GM in DEXTROSE 5% IN WATER 50 ML IV SCH (05:59)
[2020-11-03 06:50] LABS: Basophils # (Auto) 0.06 K/mcL (0.00-0.20); Eosinophils # (Auto) 0.57 K/mcL (0.00-0.70); Eosinophils % (Auto) 9.5 % (0.0-7.0); Hematocrit 49.9 % (41.0-55.0); Hemoglobin 16.2 g/dL (13.5-16.5); Lymphocytes # (Auto) 0.48 K/mcL (1.50-4.80); Mean Cell Volume 104.6 fL (80.0-100.0); Mean Corpuscular HGB Conc 32.5 g/dL (31.0-36.0); Monocytes # (Auto) 1.04 K/mcL (0.10-0.90); Monocytes % (Auto) 17.3 % (1.0-12.0); Neutrophils % (Auto) 64.2 % (38.0-78.0); Platelet Count 77 K/mcL (140-440); RBC 4.77 M/mcL (4.50-5.90); Red Cell Distribution Width 17.8 % (11.5-14.5)
[2020-11-03] MEDS: DOCUSATE SODIUM 100 MG CAPSULE PO SCH ×2 (07:25→21:29)
[2020-11-03 08:02] LABS: ALT/SGPT 28 U/L (<40); AST/SGOT 52 U/L (<40); Albumin 3.4 gm/dL (3.2-5.2); Albumin/Globulin Ratio 1.1 (1.0-2.3); Alkaline Phosphatase 352 U/L (39-117); Bilirubin,Direct 0.7 mg/dL (<0.3); Blood Urea Nitrogen 35 mg/dL (6-20); Calcium 8.8 mg/dL (8.6-10.4); Carbon Dioxide 25 mmol/L (22-30); Chloride 91 mmol/L (96-108); Globulin 3.1 gm/dL (2.2-3.7); Glomerular Filtration Rate 9; Glucose 65 mg/dL (70-105); Lactate Dehydrogenase 268 U/L (135-225); Phosphorous 4.6 mg/dL (2.5-4.5); Triglycerides 90 mg/dL (<150)
[2020-11-03] MEDS: HEPARIN 5,000 UNIT/ML VIAL SQ SCH ×2 (08:52→21:43)
[2020-11-03] MEDS: CALCIUM ACETATE 667 MG CAPSULE PO SCH ×3 (08:52→17:13)
--- NOTE | 2020-11-03 09:35 | Consultation ---
DATE OF CONSULTATION: 11/01/2020 REFERRING PHYSICIAN: Jeison Okeefe M.D. HISTORY OF PRESENT ILLNESS: Mr. Jose is a 55-year-old gentleman with history of end-stage renal disease, on hemodialysis. He dialyzes using a graft on his left upper extremity. He has a history of chronic congestive heart failure secondary to cardiomyopathy. His ejection fraction is around 20%-25%. When he came into the dialysis yesterday, he had shaking chills. Blood cultures were obtained and 1 g of ceftazidime and 1 g of Ancef were given during dialysis. It was unsure what the cause of his cultures were, then he spiked a temperature of 104. At that time, he was sent to the emergency room. In the emergency room, he was found to be quite confused and had hypotension and right-sided jaw cellulitis. He was hospitalized and started Zosyn. This morning, he feels a lot better. He is just confused. He is needing high dose of oxygen, and his potassium is subsequently elevated. PAST MEDICAL HISTORY: Significant for: 1. Chronic congestive heart failure secondary to cardiomyopathy. 2. Cardiac defibrillator in placement. 3. End-stage renal disease, on hemodialysis. 4. Hypertension. 5. Anemia. MEDICATIONS: On hospitalization, currently he is on: 1. PhosLo 667 mg 2 tablets p.o. t.i.d. with meals. 2. Simvastatin 20 mg once daily. 3. Amiodarone 200 mg once daily. 4. Aspirin 81 mg once daily. 5. Carvedilol 3.125 mg at night. 6. Midodrine 10 mg p.o. as needed. 7. Vitamin D3 of 5000 units 3 times a week. 8. Nephro-Mathieu 1 tablet once daily. 9. Clopidogrel 75 mg once daily. 10. Hydralazine 10 mg as needed. 11. Levothyroxine 25 mcg once daily. ALLERGIES: HE IS ALLERGIC TO MORPHINE, BISOPROLOL, AND MIDAZOLAM. SOCIAL HISTORY: He lives by himself. He is . No history of alcohol or drug use. FAMILY HISTORY: Noncontributory. PHYSICAL EXAMINATION: GENERAL: He is alert and oriented times 3, in no apparent distress. VITAL SIGNS: Blood pressure 110-130 systolic with a diastolic in the 60s, pulse rate have been in 70s-90s, pulse oximetry 90% on 4 liters. HEENT: NC/AT. Pupils are reactive. External ear and tympanic membrane appears normal. Oral cavity is normal. He does still have right-sided facial erythema. NECK: Supple. No jugular venous distention. No lymphadenopathy, no thyromegaly. LUNGS: Decreased air entry bilaterally. Rhonchi and rales are heard in both bases. CARDIAC: S1, S2 heard. No S3, S4. He has 2/6 systolic murmur. ABDOMEN: Soft, nontender, no organomegaly. Positive bowel sounds. No mass, no rebound. EXTREMITIES: Did not show any evidence of edema. Difficult to palpate his dorsalis pedis and posterior tibialis. No skin rash or joint swelling is noted. NEUROLOGIC: Exam is grossly intact. LABORATORY DATA: White count is 8.8 with a hemoglobin of 17.5, platelet count of 99. Sodium 130, potassium 5.8, chloride of 91, CO2 of 32, BUN of 34, creatinine of 7.3, phosphorus of 4.5. C-reactive protein of 11.3. He had face CT, which showed there is a focal lucency and bone destruction surrounding the root of the left maxillary incisors, abnormal soft tissue anterior to the maxilla and extending to the right cheek. Chest x-ray showed cardiomegaly without any pulmonary edema. ASSESSMENT AND PLAN: 1. End-stage renal disease, on hemodialysis. His potassium is slightly elevated. He had a complete treatment done on Tuesday. He is mainly volume expanded because of possibly intravenous fluids. Since his pressors were tapered off this morning, I will treat him today with Kayexalate and let the infection get a little bit better as he may have the trouble tolerating the dialysis today. We will plan for the dialysis if the potassium remain high tomorrow. 2. Facial cellulitis, managed by Dr. Okeefe. CATIE:tiffanie Job ID: [id number] Doc ID: [id number] Emanuel Butts MD cc:Dr. Jeison Okeefe
--- NOTE | 2020-11-03 12:16 | EKG ---
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 Measurements Intervals [place] Rate: 96 P: 52 ID: [id number] QRS: -78 QRSD: 126 T: 126 QT: 387 QTc: 490 Interpretive Statements Sinus rhythm Ventricular premature complex Biatrial enlargement IVCD, consider atypical RBBB LVH with secondary repolarization abnormality Inferior infarct, old Anterior ST elevation, probably due to LVH NO PRIOR TRACING FOR COMPARISON Electronically Signed On 11-03-2020 12:16:07 PDT by Aguilar Cleveland M.D. /[facility] [place]/M0/[id number]
--- NOTE | 2020-11-03 12:30 | Nephrology Progress Note ---
SUBJECTIVE Subjective Patient information: Note initiated : 11/03/20 at 12:26 pm Service Date, if different from initiated Date: [] Patient: Oswaldo Jose 55 y/o M admitted on 11/01/20 for altered mental status, possibly septic, fever. Chief Complaint: []Jaw still hurts. Constitutional Vitals: Vital Signs Temp Pulse Resp BP Pulse Ox 97.2 F 61 14 140/83 100 11/03/20 09:42 11/03/20 12:15 11/03/20 12:17 11/03/20 12:16 11/03/20 12:17 Period Temp Pulse Resp BP Sys/Joy Pulse Ox Last 24 Hr 97.2 F-98.8 F 61-90 12-43 83-185/50-139 90-100 Intake and Output 11/02/20 11/03/20 11/03/20 21:59 05:59 13:59 Intake Total 290 50 290 Output Total 2805 Balance -2515 50 290 Weight 171 lb 3.2 oz Intake & Output: Intake & Output 11/02/20 11/03/20 11/03/20 21:59 05:59 13:59 Intake Total 290 50 290 Output Total 2805 Balance -2515 50 290 Weight 171 lb 3.2 oz Intake: IV 50 50 50 Zosyn 2.25 gm In Dextrose 5% in 50 50 50 Water 50 ml @ 100 mls/hr IV Q8H [facility] Rx#:[id number] Oral 240 240 Output: Hemodialysis UF 2805 Other: Meal Dinner Breakfast Percent of Meal Consumed 75% 100% Feeding Ability Independent Independent Head Head exam: Present atraumatic ENT ENT exam: Present mucous membranes dry Neck Neck exam: Present full ROM Respiratory Respiratory exam: Present normal respiratory exam Cardiovascular Cardiovascular exam: Present diastolic murmur Neurological Exam Neurological exam: Present alert A/P Time Spent With Patient Time: Total time spent is greater than 50% in coordination of care (as documented) at patient's floor/unit and/or counseling patient: ESRD, HD today. BP is better. HD today and will remove 4 Kilos of fluid. Facial cellulitis. Continued antibiotics.
--- NOTE | 2020-11-03 12:40 | Internal Med Progress Note ---
SUBJECTIVE Subjective Patient information: Note initiated : 11/03/20 at 12:37 pm Service Date, if different from initiated Date: [] Patient: Oswaldo Jose a 55 y/o M admitted on 11/01/20 for altered mental status, possibly septic, fever. Chief Complaint: [] Interval history: History of present illness: Mr. Jose is a 55 year old M with history of ESRD on hemodialysis/A. fib/chronic hypertension/HLD who presents to the ER from dialysis with hypotension/high-grade fever up to 104 and right- sided facial redness and swelling. Patient was at dialysis per he was noted to be altered and confused with blood pressure dropping down. He was started on ceftazidime with dialysis clinic and was emergently transferred to the ER. Initial work-up was consistent with severe sepsis with tachycardia cause, tachypnea/hypotension and likely source right-sided jaw cellulitis on CT face. Patient was started on antibiotics after cultures were drawn. Hospitalist service was consulted for admission. At the time of my evaluation patient is lethargic and confused. Most of the history was obtained from patient's sister who is accompanying him. Patient was able to answer some of the review of systems and denies headache, photophobia, diarrhea, dysuria endorses to weakness, shaking chills. 6/5 patient doing better. Weaning Levophed. No overnight events. Much more lucid alert. Potassium 5.8. Hemodialysis today. Nephrology consulted. Continue antibiotics. Right-sided facial swelling much improved. at bedside. No expressed concerns per nursing staff. T-max 102 6/6- Doing well, No overnight events, K 6.4 , HD today, Improved rt side jaw swelling. Off pressors. Minimal jaw discomfort. 6/7-patient clinically improved. Complains of minimal discomfort on the right maxillary area but improved facial swelling. White count down to 6000. Ongoing hemodialysis. Blood pressure stable. Likely discharge 24 hours. Transition to oral Augmentin. No overnight fever chills or concerns per staff. Case discussed with nephrology. Constitutional Vitals: Vital Signs Temp Pulse Resp BP Pulse Ox 97.2 F 93 H 14 134/86 100 11/03/20 09:42 11/03/20 12:28 11/03/20 12:17 11/03/20 12:28 11/03/20 12:17 Period Temp Pulse Resp BP Sys/Joy Pulse Ox Last 24 Hr 97.2 F-98.8 F 61-93 12-43 83-185/50-139 90-100 Intake and Output 11/02/20 11/03/20 11/03/20 21:59 05:59 13:59 Intake Total 290 50 290 Output Total 2805 Balance -2515 50 290 Weight 77.655 kg Alert oriented Nonlabored breathing No anxiety Intake & Output: Intake & Output 11/02/20 11/03/20 11/03/20 21:59 05:59 13:59 Intake Total 290 50 290 Output Total 2805 Balance -2515 50 290 Weight 77.655 kg Intake: IV 50 50 50 Zosyn 2.25 gm In Dextrose 5% in 50 50 50 Water 50 ml @ 100 mls/hr IV Q8H [facility] Rx#:[id number] Oral 240 240 Output: Hemodialysis UF 2805 Other: Meal Dinner Breakfast Percent of Meal Consumed 75% 100% Feeding Ability Independent Independent Stool Size Moderate Stool Color Brown Stool Consistency Soft OBJ DATA Labs CBC & Chem 7: 11/03/20 05:11 11/03/20 05:11 Labs: Abnormal Lab Results 11/03/20 11/03/20 11/02/20 05:11 05:11 05:14 Hgb Hct MCV 104.6 H MCH MCHC RDW 17.8 H Plt Count 77 L MPV Neut % (Auto) Lymph % (Auto) 8.0 L Bea[place]gard % (Auto) 17.3 H Eos % (Auto) 9.5 H Lymph # (Auto) 0.48 L [place] # (Auto) 1.04 H Sodium 131 L 130 L Potassium 6.4 H* Chloride 91 L 89 L Anion Gap 17.0 H BUN 35 H 58 H Creatinine 6.4 H* 8.1 H* Glucose 65 L Calcium 8.5 L Phosphorus 4.6 H 6.2 H* Magnesium 2.6 H Total Bilirubin Direct Bilirubin 0.7 H 0.6 H GGT 311 H 307 H AST 52 H 69 H ALT Alkaline Phosphatase 352 H 330 H Lactate Dehydrogenase 268 H 447 H C-Reactive Protein Albumin/Globulin Ratio 0.9 L Procalcitonin 11/02/20 11/01/20 11/01/20 05:14 07:35 05:30 Hgb 17.3 H 17.5 H Hct 56.8 H MCV 107.4 H 113.4 H MCH 34.7 H 34.9 H MCHC 30.8 L RDW 18.6 H 20.0 H Plt Count 86 L 99 L MPV 10.9 H 11.9 H Neut % (Auto) Lymph % (Auto) 7.0 L Bea[place]gard % (Auto) 14.8 H 18.9 H Eos % (Auto) Lymph # (Auto) 0.45 L [place] # (Auto) 0.95 H 1.66 H Sodium Potassium Chloride Anion Gap BUN Creatinine Glucose Calcium Phosphorus Magnesium Total Bilirubin Direct Bilirubin GGT AST ALT Alkaline Phosphatase Lactate Dehydrogenase C-Reactive Protein Albumin/Globulin Ratio Procalcitonin 5.06 H 11/01/20 10/31/20 10/31/20 05:30 19:56 19:32 Hgb 18.4 H Hct 56.3 H MCV 104.8 H MCH 34.3 H MCHC RDW 18.8 H Plt Count 99 L MPV Neut % (Auto) 80.0 H Lymph % (Auto) 6.2 L Bea[place]gard % (Auto) Eos % (Auto) Lymph # (Auto) 0.40 L Bea[place] # (Auto) Sodium 130 L Potassium 5.8 H 5.5 H Chloride 91 L 93 L Anion Gap 17.0 H BUN 34 H 24 H Creatinine 7.3 H* 5.4 H* Glucose 54 L Calcium 8.4 L Phosphorus Magnesium 2.6 H Total Bilirubin 2.1 H Direct Bilirubin 0.7 H GGT 352 H AST 60 H 51 H ALT 42 H 42 H Alkaline Phosphatase 386 H 377 H Lactate Dehydrogenase 282 H C-Reactive Protein 11.30 H Albumin/Globulin Ratio Procalcitonin Meds: Medications Acetaminophen (Acetaminophen 325 Mg Tablet) 650 mg PO Q4-6HP PRN; Protocol PRN Reason: Per Pain Protocol/Fever > 101 Last Admin: 11/03/20 11:48 Dose: 650 mg Documented by: Amoxicillin/Clavulanate Potassium (Amoxicillin/Potassium Clav 875 Mg Tablet) 875 mg PO DAILY [facility] Bisacodyl (Bisacodyl 10 Mg Supp.Rect) 10 mg AL Q2-3DAYS PRN PRN Reason: Constipation Calcium Acetate (Calcium Acetate 667 Mg Capsule) 1,334 mg PO TIDCC [facility] Last Admin: 11/03/20 08:52 Dose: 1,334 mg Documented by: Docusate Sodium (Docusate Sodium 100 Mg Capsule) 100 mg PO BID [facility] Last Admin: 11/03/20 07:25 Dose: Not Given Documented by: Heparin Sodium (Porcine) (Heparin 5,000 Unit/Ml Vial) 5,000 unit SQ Q12 [facility] Last Admin: 11/03/20 08:52 Dose: 5,000 unit Documented by: Magnesium Sulfate (Magnesium Sulfate) 2 gm in 50 mls @ 50 mls/hr IV UD PRN PRN Reason: MG = or < 1.7 Acetaminophen (Ofirmev) 650 mg in 65 mls @ 130 mls/hr IV Q6HP PRN; Protocol PRN Reason: Per Pain Protocol/Fever > 101 Last Infusion: 11/01/20 02:18 Dose: Infused Documented by: Norepinephrine Bitartrate 16 (mg/ Sodium Chloride) 250 mls @ 9.375 mls/hr IV Q24HP PRN; Protocol PRN Reason: Hypotension Melatonin (Melatonin 3 Mg Tablet) 3 mg PO HSP PRN PRN Reason: Insomnia Last Admin: 11/02/20 21:44 Dose: 3 mg Documented by: Ondansetron HCl (Ondansetron 4 Mg Odt Tablet) 4 mg SL Q4-6HP PRN; Protocol PRN Reason: Nausea And Vomiting Ondansetron HCl (Ondansetron 4 Mg/2 Ml Vial) 4 mg IV Q4-6HP PRN; Protocol PRN Reason: Nausea And Vomiting Polyethylene Glycol (Polyethylene Glycol 3350 17 Gm Packet) 17 gm PO DAILYP PRN PRN Reason: Constipation Senna/Docusate Sodium (Sennosides/Docusate Sodium 1 Tab Tablet) 1 tab PO HS [facility] Last Admin: 11/02/20 21:45 Dose: Not Given Documented by: Sodium Chloride (0.9 % Sodium Chloride 10 Ml Syringe) 10 ml IV Q8 [facility] Last Admin: 11/03/20 05:58 Dose: 10 ml Documented by: A/P Narrative A/P Narrative: * Septic/hypovolemic shock-clinically resolved. off pressors. Likely source facial cellulitis. Cultures negative so far. Improving on antibiotics. * Rt sided Facial cellulitis-transition to oral Augmentin. Recommend outpatient follow-up with dentist * ESRD on HD managed by Dr. Butts nephrology * Hyperkalemia management nephrology * History of nonischemic cardiomyopathy with EF 20%. On Coreg/ERIC inhibitor. Pacemaker defibrillator * History of atrial fibrillation on amiodarone * HLD on statin * Chronic hypotension -restart midodrine * Hypothyroidism continue thyroxine * History of CAD continue Plavix/Coreg/aspirin/statin * Full code * Prophylaxis Heparin Plan * Continue HD per nephrology * Transition to oral Augmentin * Pre-existing medical condition management home meds * PT OT/nutrition support * Outpatient follow-up with dentist * DC planning Time Spent With Patient Time: Total time spent is greater than 50% in coordination of care (as documented) at patient's floor/unit and/or counseling patient:
[2020-11-03] MEDS: AMOXICILLIN/POTASSIUM CLAV 875 MG TABLET PO SCH (14:14)
[2020-11-03] MEDS: SENNOSIDES/DOCUSATE SODIUM 1 TAB TABLET PO SCH (21:29)
[2020-11-03] MEDS: MELATONIN 3 MG TABLET PO PRN (21:29)
[2020-11-04] MEDS: 0.9 % SODIUM CHLORIDE 10 ML SYRINGE IV SCH (05:32)
[2020-11-04] MEDS: DOCUSATE SODIUM 100 MG CAPSULE PO SCH (07:53)
[2020-11-04 08:17] LABS: Basophils # (Auto) 0.06 K/mcL (0.00-0.20); Basophils % (Auto) 0.9 % (0.0-2.0); Eosinophils % (Auto) 6.3 % (0.0-7.0); Hematocrit 59.5 % (41.0-55.0); Hemoglobin 19.8 g/dL (13.5-16.5); Lymphocytes # (Auto) 0.82 K/mcL (1.50-4.80); Lymphocytes % (Auto) 12.8 % (15.0-49.0); Mean Cell Volume 103.3 fL (80.0-100.0); Mean Corpuscular HGB Conc 33.3 g/dL (31.0-36.0); Monocytes # (Auto) 1.32 K/mcL (0.10-0.90); Monocytes % (Auto) 20.7 % (1.0-12.0); Neutrophils % (Auto) 59.3 % (38.0-78.0); Platelet Count 88 K/mcL (140-440); RBC 5.76 M/mcL (4.50-5.90); WBC 6.4 K/mcL (4.5-11.0)
[2020-11-04] MEDS: HEPARIN 5,000 UNIT/ML VIAL SQ SCH (08:21)
[2020-11-04] MEDS: CALCIUM ACETATE 667 MG CAPSULE PO SCH (08:21)
[2020-11-04] MEDS: AMOXICILLIN/POTASSIUM CLAV 875 MG TABLET PO SCH (08:21)
--- NOTE | 2020-11-04 08:38 | Nephrology Progress Note ---
SUBJECTIVE Subjective Patient information: Note initiated : 11/04/20 at 8:36 am Service Date, if different from initiated Date: [] Patient: Oswaldo Jose 55 y/o M admitted on 11/01/20 for altered mental status, possibly septic, fever. Chief Complaint: [id number]. Still has some jaw discomfort. Constitutional Vitals: Vital Signs Temp Pulse Resp BP Pulse Ox 97.4 F 95 H 16 130/78 90 11/04/20 08:00 11/03/20 14:00 11/04/20 08:15 11/04/20 08:00 11/04/20 08:15 Period Temp Pulse Resp BP Sys/Joy Pulse Ox Last 24 Hr 96.8 F-98.2 F 61-99 12-30 77-173/55-137 90-100 Intake and Output 11/03/20 11/04/20 11/04/20 21:59 05:59 13:59 Intake Total 480 120 Output Total 3400 Balance -2920 120 Weight 159 lb 9.6 oz Intake & Output: Intake & Output 11/03/20 11/04/20 11/04/20 21:59 05:59 13:59 Intake Total 480 120 Output Total 3400 Balance -2920 120 Weight 159 lb 9.6 oz Intake: Oral 480 120 Output: Hemodialysis UF 3400 Other: Meal Dinner Percent of Meal Consumed 100% Feeding Ability Independent Stool Color Brown Stool Consistency Soft Head Head exam: Present atraumatic ENT ENT exam: Present mucous membranes dry Neck Neck exam: Present full ROM Respiratory Respiratory exam: Present normal respiratory exam Cardiovascular Cardiovascular exam: Present normal rate and rhythm A/P Time Spent With Patient Time: ESRD, HD yesterday. BP is better. Facial cellulitis. Continued antibiotics.
--- NOTE | 2020-11-04 08:51 | Discharge Summary ---
Discharge Provider Provider Patient information: Note initiated : 11/04/20 at 8:48 am Service Date, if different from initiated Date: [] Patient: Oswaldo Jose a 55 y/o M admitted on 11/01/20 for altered mental status, possibly septic, fever. Discharge diagnosis * Septic/hypovolemic shock-clinically resolved. Secondary to facial cellulitis. Cultures negative so far. Improving on antibiotics. Transition to oral Augmentin for additional 7 days * Rt sided Facial cellulitis-continue oral Augmentin for additional 7 days * ESRD on HD managed by Dr. Butts nephrology * Hyperkalemia resolved status post hemodialysis * History of nonischemic cardiomyopathy with EF 20%. On Coreg/ERIC inhibitor. Pacemaker defibrillator * History of atrial fibrillation on amiodarone * HLD on statin * Chronic hypotension -continue home dose midodrine * Hypothyroidism continue thyroxine * History of CAD continue Plavix/Coreg/aspirin/statin Brief hospital course History of present illness: Mr. Jose is a 55 year old M with history of ESRD on hemodialysis/A. fib/chronic hypertension/HLD who presents to the ER from dialysis with hypotension/high-grade fever up to 104 and right-sided facial redness and swelling. Patient was at dialysis per he was noted to be altered and confused with blood pressure dropping down. He was started on ceftazidime with dialysis clinic and was emergently transferred to the ER. Initial work-up was consistent with severe sepsis with tachycardia cause, tachypnea/hypotension and likely source right-sided jaw cellulitis on CT face. Patient was started on antibiotics after cultures were drawn. Hospitalist service was consulted for admission. At the time of my evaluation patient is lethargic and confused. Most of the history was obtained from patient's sister who is accompanying him. Patient was able to answer some of the review of systems and denies headache, photophobia, diarrhea, dysuria endorses to weakness, shaking chills. 6/5 patient doing better. Weaning Levophed. No overnight events. Much more lucid alert. Potassium 5.8. Hemodialysis today. Nephrology consulted. Continue antibiotics. Right-sided facial swelling much improved. at bedside. No expressed concerns per nursing staff. T-max 102 6/6- Doing well, No overnight events, K 6.4 , HD today, Improved rt side jaw swelling. Off pressors. Minimal jaw discomfort. 11/03-patient clinically improved. Complains of minimal discomfort on the right maxillary area but improved facial swelling. White count down to 6000. Ongoing hemodialysis. Blood pressure stable. Likely discharge 24 hours. Transition to oral Augmentin. No overnight fever chills or concerns per staff. Case discussed with nephrology. 11/04-patient doing a lot better. Discharging on oral antibiotic for additional 7 days. Recommend follow-up with dentist. Continue hemodialysis as prior. No overnight fever chills. Requesting discharge. Feels at baseline. Date of admission: 11/01/20 00:01 Discharge date: 11/04/20 Primary care physician: Emanuel Butts Consults: 10/31/20 22:47 Consult to Physician [CONS] Stat Comment: Consulting Provider: Jeison Okeefe Reason For Exam: Physician to Consult Discharge Meds Discharge Medications Home Medications calcium acetate(phosphat bind) 1,334 mg PO TIDCC 01/23/19 [History Confirmed 11/01/20 Last Taken Unknown] simvastatin 20 mg PO HS 01/23/19 [History Confirmed 11/01/20 Last Taken Unknown] amiodarone 200 mg PO HS 03/15/19 [History Confirmed 11/01/20 Last Taken Unknown] aspirin 81 mg PO QDAY 03/15/19 [History Confirmed 11/01/20 Last Taken Unknown] calcium acetate(phosphat bind) 667 mg PO BIDP PRN 03/15/19 [History Confirmed 11/01/20 Last Taken Unknown] carvedilol 3.125 mg PO HS 03/15/19 [History Confirmed 11/01/20 Last Taken Unk nown] cholecalciferol (vitamin D3) 5,000 unit PO 2-3XW 03/15/19 [History Confirmed 11/01/20 Last Taken Unknown] midodrine 10 mg PO QIDP PRN 03/15/19 [History Confirmed 11/01/20 Last Taken Unknown] Folbee Plus 1 tab PO HS 11/01/20 [History Confirmed 11/01/20 Last Taken Unknown] clopidogrel 75 mg PO DAILY 11/01/20 [History Confirmed 11/01/20 Last Taken Unknown] hydralazine 10 mg PO BID 11/01/20 [History Confirmed 11/01/20 Last Taken Unknown] levothyroxine 25 mcg PO DAILY 11/01/20 [History Confirmed 11/01/20 Last Taken Unknown] amoxicillin-pot clavulanate 875 mg PO DAILY #14 tab 11/04/20 [Rx Last Taken Unknown] COURSE Hospital Course Hospital course: . Discharge diagnosis: . Time Spent with Patient Time attestation: Total time spent providing and/or coordinating discharge services: EXAM Constitutional Vitals: Temp Pulse Resp BP Pulse Ox 97.4 F 95 H 16 130/78 90 11/04/20 08:00 11/03/20 14:00 11/04/20 08:15 11/04/20 08:00 11/04/20 08:15 Discharge Data Data Completed and Pending Labs on day of discharge: Labs from last 24 hours 11/04/20 11/04/20 07:30 07:30 WBC 6.4 RBC 5.76 Hgb 19.8 H Hct 59.5 H MCV 103.3 H MCH 34.4 H MCHC 33.3 RDW 19.0 H Plt Count 88 L MPV Neut % (Auto) 59.3 Lymph % (Auto) 12.8 L Har[place] % (Auto) 20.7 H Eos % (Auto) 6.3 Baso % (Auto) 0.9 Lymph # (Auto) 0.82 L [place] # (Auto) 1.32 H Eos # (Auto) 0.40 Baso # (Auto) 0.06 Absolute Neutrophils 3.79 Sodium TNP Potassium TNP Chloride TNP Carbon Dioxide TNP Anion Gap TNP BUN TNP Creatinine TNP GFR Calculation TNP Glucose TNP Uric Acid TNP Calcium TNP Phosphorus TNP Magnesium TNP Total Bilirubin TNP Direct Bilirubin TNP GGT TNP AST TNP ALT TNP Alkaline Phosphatase TNP Lactate Dehydrogenase TNP Total Protein TNP Albumin TNP Globulin TNP Albumin/Globulin Ratio TNP Triglycerides TNP Preliminary micro results at discharge 10/31/20 19:46 Blood Culture - Preliminary Blood 10/31/20 19:32 Blood Culture - Preliminary Blood Discharge Plan Patient/Caregiver Discharge Instructions Activity: increase activity as tolerated Diet: Renal Instructions: Sepsis (GEN) Activity Restrictions/Additional Instructions: Follow up with your dentist, Dr. Brar in [place] as soon as soon as possible. Continue Augmentin for additional 7 days Follow-up PCP in 5 to [address] Butts[facility] dialysis center This discharge packet is provided to you to help keep you informed about your care. We want to ensure you get everything you need when you go home. You will also be receiving a call from us in a few days to follow up with you and see how you are doing since your discharge. This gives us a chance to listen to any concerns you maybe experiencing since you were discharged or any additional needs you may have, as well as providing us feedback on your care experience. We strive to always provide excellent care and thank you for your feedback and for choosing [facility]. Prescriptions: New amoxicillin-pot clavulanate 875-125 mg Tablet 875 mg PO DAILY Qty: 14 RF: 0 Continued simvastatin 20 MG tablet 20 mg PO HS RF: 0 calcium acetate(phosphat bind) 667 MG capsule 1,334 mg PO TIDCC RF: 0 amiodarone 200 MG tablet 200 mg PO HS RF: 0 aspirin 81 MG tablet,chewable 81 mg PO QDAY RF: 0 midodrine 5 MG tablet 10 mg PO QIDP PRN (Reason: Blood Pressure - Low) RF: 0 carvedilol 3.125 MG tablet 3.125 mg PO HS RF: 0 cholecalciferol (vitamin D3) 5,000 UNIT tablet,disintegrating 5,000 unit PO 2-3XW RF: 0 calcium acetate(phosphat bind) 667 MG capsule 667 mg PO BIDP PRN (Reason: With snacks) RF: 0 Folbee Plus 5 mg tablet 1 tab PO HS RF: 0 hydralazine 10 mg tablet 10 mg PO BID RF: 0 clopidogrel 75 mg tablet 75 mg PO DAILY RF: 0 levothyroxine 25 mcg tablet 25 mcg PO DAILY RF: 0 Follow Up Plan Follow up with: Eric Zamora MD [Physician] - 11/18/20 11:00 am (Please arrive 15 minutes early) Emanuel Butts MD [Primary Care Provider] - (Continue with your current schedule in clinic) Patient Disposition: Home, Self-Care Prognosis: Fair Rehab Potential: Fair I certify that the patient requires SNF services: No Overall status at discharge: patient is progressing back to baseline Discharge Orders: Discharge Order (Routine); Ordered 11/04/20 Ordered By: Jeison Okeefe
[2020-11-04 10:05] LABS: ALT/SGPT 53 U/L (<40); AST/SGOT 84 U/L (<40); Albumin 3.4 gm/dL (3.2-5.2); Albumin/Globulin Ratio 0.8 (1.0-2.3); Alkaline Phosphatase 540 U/L (39-117); Bilirubin,Direct 0.6 mg/dL (<0.3); Blood Urea Nitrogen 29 mg/dL (6-20); Calcium 9.6 mg/dL (8.6-10.4); Carbon Dioxide 23 mmol/L (22-30); Chloride 89 mmol/L (96-108); Globulin 4.3 gm/dL (2.2-3.7); Glomerular Filtration Rate 10; Glucose 96 mg/dL (70-105); Lactate Dehydrogenase 313 U/L (135-225); Phosphorous 5.3 mg/dL (2.5-4.5); Triglycerides 95 mg/dL (<150); Uric Acid 4.7 mg/dL (2.5-8.0)
== END 2020-11-04 11:00 | disposition home or self-care (01) | DRG 871 ==
LOC: ED 18:27 → ICU 11-01 00:01
PROVIDERS: ADMIT Internal Medicine; ATTEND Internal Medicine